=== PATIENT | female | born 1990 | race Caucasian/White ===

== ENCOUNTER 2023-03-05 09:13 | Outpatient (CLI) | payer BC, SELFPAY ==
[2023-03-05] VITALS (16 sets, daily range): BP systolic 116; BP diastolic 73; PULSE 82–102; RESP 16; TEMP 36.8; O2SAT 92–100
--- NOTE | 2023-03-05 10:41 | CRLHL7_ITS ---
For Patients: As a result of the Century Cures Act, medical imaging exams and procedure reports are released immediately into your electronic medical record. You may view this report before your referring provider. If you have questions, please contact your health care provider. INDICATION: Decreased movement. TECHNIQUE: Ultrasound OB pelvis transabdominal. Real-time landaverde-scale imaging of the fetus was performed without stress testing. COMPARISON: None. FINDINGS: Intrauterine gestation: Present. heart rate: 161 BPM. Presentation: Vertex. Placenta: Anterior. Amniotic fluid volume single deepest pocket 7.2 cm 2/2. motion 2/2. tone 2/2. breathing movements 2/2. IMPRESSION: Single viable intrauterine with a normal biophysical profile score of 8 out of 8. Dictated by Angie Raygoza MD @ 03/05/2023 11:53:33 AM (Electronically Signed)
--- NOTE | 2023-03-05 11:55 | PC.OBNST ---
NST Note NST Note Start: 03/05/23 09:14 Freq: ONCE Status: Active Protocol: Document 03/05/23 11:50 [place] (Rec: 03/05/23 11:54 [place] [id number]) NST Note 2 Para (# of births) 1 EDC 04/14/23 Gestational Age In Weeks & Days 34 Weeks & 2 Days Patient Presented with Complaint(s) of Decreased movement Reactive Yes Appropriate for Gestational Age Yes JANIE Louise RNC Date 03/05/23 Reactive Yes Appropriate for Gestational Age Yes JANIE Wei RN Date 03/05/23 OB NST charge Yes Complete NST Note via Write Note Yes The provider's electronic signature indicates the NST is reactive/appropriate for gestational age. *Note to provider: If an addendum is required, open the patient's chart and click on the note under the Nurse/Allied Health tab.
[2023-04-21 17:48] VITALS: BMI 34.3
== END 2023-03-05 11:35 | disposition home or self-care (01) ==
LOC: OB OUT 09:14 → OB 09:14
PROVIDERS: Visit Provider Family Medicine
DX: O36.8190 Decreased fetal movements, unspecified trimester, not applicable or unspecified (principal)
CPT/HCPCS: 59025; 76819; G0463

== ENCOUNTER 2023-04-21 17:10 | Inpatient (IN) | payer BC, SELFPAY ==
[2023-04-21] VITALS (9 sets, daily range): BP systolic 119–126; BP diastolic 78; PULSE 75–78; RESP 16; TEMP 37.1–37.4; O2SAT 98; BMI 34.3
--- NOTE | 2023-04-21 19:42 | PM.OBHPLI ---
OB - H&P: HPI Labor/Induction History of Present Illness Time Seen by Provider: 19:42 Date Seen: 04/21/23 Chief Complaint: The patient is a 32 year old 2 para 1 at 41+0 weeks gestation by LMP c/w 7 wk US, who presents for IOL for post-dates. Chief complaint: Maternity : 2 Para: 1 Indications for induction: prolonged Narrative: Shayy Sweet is a 32 year old female 2 para 1 at 41+0 weeks gestation by LMP c/w 7 wk US, who presents for IOL for post-dates. complicated by subclinical hypothyroidism on levothyroxine. GBS positive. Today, endorses intermittent mild cramping, she says present since due date. No regular contractions. No LOF. Normal movement. Cervical exam on admission was 2/50/-2. Not pablo. Cook catheter was placed. Shortly thereafter, patient reported a gush of fluid, and found to be grossly ruptured. Light meconium fluid. Cook catheter was removed. When the patient was placed back on the monitor, deceleration to the 70s was captured on external monitoring. Rapidly resolved back to baseline of ~165. Cervical exam was repeated, no cord present. History of Present Dating criteria: based on LMP care: good care Ultrasounds: normal 1st trimester US, normal mid trimester US and other (33 week growth US with EFW 68th percentile, AC 92nd percentile) Labs Blood type: B (+) positive Rubella: immune RPR/VDLR: nonreactive GBS status: positive HBsAG: negative Review of Systems Status of ROS: Reports: 10 or more systems reviewed and unremarkable except as noted in History and below Meds Home Medications and Allergies Home Medications Medication Instructions Recorded Confirmed Type levothyroxine 100 mcg tablet 100 mcg PO DAILY 03/05/23 04/21/23 History ondansetron HCl 4 mg tablet 4 mg PO Q8H PRN 03/05/23 04/21/23 History vit no.95-ferrous 1 tab PO DAILY 03/05/23 04/21/23 History fumarate 28 mg-folic acid 800 mcg tablet () Allergies Allergy/AdvReac Type Severity Reaction Status Date / Time No Known Drug Allergies Allergy Verified 03/05/23 09:48 OB - H&P: Exam Physical Exam: Vital signs: Temp Pulse BP Pulse Ox 99.1 F 75 119/78 98 04/21/23 18:53 04/21/23 18:57 04/21/23 18:57 04/21/23 18:56 Narrative: General appearance: Well-appearing adult female. Alert, oriented and appropriate. Sitting up in hospital bed. HEENT: EOMI, no conjunctival injection or discharge. MMM. Neck: Supple. CV: RRR, no rubs, murmurs or extra heart sounds. Pulm: CTAB, no wheezes, rales or rhonchi. Abdomen: Gravid. Soft. MSK: Moving all extremities. Ext: Warm and well-perfused. No LE edema. Skin: No rashes appreciated over exposed skin. Neuro: Grossly normal strength and sensation. No focal deficits. Psych: Normal affect. Detailed Labor and Delivery Exam: Dilation (cm): 2 Effacement (%): 50 Cervix position: mid Consistency: soft Cervical ripeness score: 6 Contraction frequency (min): 0 Fetus (Single): Station: -2 Amniotic Membrane Status: SROM Amniotic Membrane Fluid Description: Meconium Stained (light) Heart Rate Baseline: 165 Monitor Accelerations: Present Monitor Decelerations: Variable (Single associated with ROM) Intermediate Variability: Moderate (6-25) OB - Problem Based A/P Additional Plan (1) Post-dates : Status: Acute Plan: - Monitor following ROM. Consider oral cytotec unless spontaneous labor - Epidural upon request - GBS positive. Abx in active labor - Light meconium stained fluid - Anticipate vaginal delivery (2) Subclinical hypothyroidism: Status: Acute Plan: - Continue levothyroxine 100 mcg daily
[2023-04-21 20:32] LABS: Basophils Absolute Auto 0.03 K/uL (0.00-0.30); Basophils Percent Auto 0.3 % (0.0-3.0); Eosinophils Absolute Auto 0.06 K/uL (0.00-0.50); Eosinophils Percent Auto 0.7 % (0.0-7.0); Hematocrit 35.1 % (33.0-51.0); Hemoglobin* 11.4 gm/dL (12.0-16.0); Immature Granulocytes Abs Auto 0.05 K/uL (0.00-0.30); Immature Granulocytes Pct Auto 0.6 %; Lymphocytes Percent Auto 18.8 % (20-44); Mean Corpuscular HGB Conc 33 gm/dL (32-36); Mean Corpuscular Hemoglobin 27 pg (26-34); Mean Corpuscular Volume 83 fL (80-100); Monocytes Percent Auto 7.5 % (0.0-11.0); Neutrophils Percent Auto 72.1 % (42.0-72.0); Platelet Count* 281 K/uL (140-440); RDW Coefficient of Variation % 14.6 % (11.5-15.5); Red Blood Count 4.25 m/uL (4.00-5.20); White Blood Count* 9.05 K/uL (4.50-11.00)
[2023-04-21 20:35] LABS: Slide Review Reflex No
[2023-04-21] MEDS: LACTATED RINGERS 1000 ML 1,000 ML 125 ML IV (20:53)
[2023-04-21] MEDS: AMPICILLIN 2 GM in 0.9 % SODIUM CHLORIDE Mini-bag 100 ML IVPB (20:55)
[2023-04-22] VITALS (47 sets, daily range): BP systolic 83–146; BP diastolic 41–88; PULSE 71–129; RESP 12–20; TEMP 36.4–37.6; O2SAT 96–100
[2023-04-22] MEDS: AMPICILLIN 1 GM in 0.9 % SODIUM CHLORIDE Mini-bag 100 ML IVPB ×2 (02:29→06:30)
[2023-04-22] MEDS: LIDOCAINE 2% (PF) 5 ML VIAL EPIDURAL (02:37)
[2023-04-22] MEDS: ROPIVACAINE 0.2% 100 ml 100 ML 12 MG EPIDURAL (02:37)
[2023-04-22] MEDS: ROPIVACAINE 0.2 % PF 10 ML INJ 20 MG EPIDURAL (02:38)
--- NOTE | 2023-04-22 02:46 | P.ANBPRC_ITS ---
PFSH PFSH Social History What is your current living situation?: I presently have a place to live Problems where you live: no known problems In the past 12 months, utilities in danger of being shut off: no In past 12 months, lack of transportation kept you from medical appts, meetings, work, or getting things needed for daily living: no In the past 12 mos, have been you worried that your food would run out before you had money to buy more?: never true In the past 12 mos, the food you bought just didn't last and you didn't have money to buy more?: never true Smoking Status: Never smoker How often does anyone, including family, friends and others, physically hurt you : never How often does anyone, including family, friends and others, insult or talk down to you: never How often does anyone, including family, friends and others, threaten you with harm: never How often does anyone, including family, friends and others, scream or curse at you: never Meds Home Medications and Allergies Home Medications Medication Instructions Recorded Confirmed Type levothyroxine 100 mcg tablet 100 mcg PO DAILY 03/05/23 04/21/23 History ondansetron HCl 4 mg tablet 4 mg PO Q8H PRN 03/05/23 04/21/23 History vit no.95-ferrous 1 tab PO DAILY 03/05/23 04/21/23 History fumarate 28 mg-folic acid 800 mcg tablet () Allergies Allergy/AdvReac Type Severity Reaction Status Date / Time No Known Drug Allergies Allergy Verified 03/05/23 09:48 Results Labs Labs: Laboratory Results - last 24 hr 04/21/23 20:17 WBC 9.05 RBC 4.25 Hgb 11.4 L Hct 35.1 MCV 83 MCH 27 MCHC 33 RDW Coeff of Laura 14.6 Plt Count 281 Neut % (Auto) 72.1 H Lymph % (Auto) 18.8 L [place] % (Auto) 7.5 Eos % (Auto) 0.7 Baso % (Auto) 0.3 Neut # (Auto) 6.50 Lymph # (Auto) 1.70 [place] # (Auto) 0.70 Eos # (Auto) 0.06 Baso # (Auto) 0.03 Abs Immat Gran (auto) 0.05 Imm/Tot Granulo (auto) 0.6 Blood Type B Positive Antibody Screen NEGATIVE Vital Signs Vital Signs: Last Vital Signs Temp 99.0 F 04/21/23 23:25 Pulse 101 H 04/22/23 02:43 Resp 16 04/21/23 23:25 BP 132/77 04/22/23 02:45 Pulse Ox 100 04/22/23 02:43 Weight: 96.615 kg Height: 167.64 cm Anesthesia Procedures Epidural Insertion Patient Location: OB Start Time: 02:14 Stop Time: 02:47 Start Date: 04/22/23 Stop Date: 04/22/23 Reason for Block: procedure for pain Patient Position: sitting Performed By: Moe Cobos Preanesthetic Checklist: IV checked, risks and benefits discussed, surgical consent, monitors and equipment checked, pre-op evaluation, timeout performed and anesthesia consent Prep: chlorhexidine gluconate Monitoring: blood pressure monitoring, continuous pulse oximetry and heart rate Approach: midline Vertebral Space: lumbar (1-5) Epidural Technique: CHERIE air Needle Type: Tuohy needle Injection Technique: continuous catheter Needle gauge: 17 Needle Length (cm): 10 cm Needle Insertion Depth (cm): 7 Catheter Gauge: 19 Catheter Type: multi-orifice Catheter at skin depth (cm): 13 Test Dose Result: negative and lidocaine 1.5% with epinephrine 1 to 200,000
[2023-04-22] MEDS: ONDANSETRON 2 MG/ML inj 4 MG IV (02:58)
[2023-04-22] MEDS: PHENYLEPHRINE 100 MCG/ML SYRINGE IVP ×4 (03:06→04:38)
[2023-04-22] MEDS: LACTATED RINGERS 1000 ML 1,000 ML 125 ML IV (04:14)
--- NOTE | 2023-04-22 04:36 | PM.OBPNL ---
Subjective Date Seen: 04/22/23 Narrative: Shayy is a at 41+1 weeks here for IOL for post dates. She had a cook catheter placed last evening, but then had SROM with meconium stained fluid. Since her cervix was not favorable, was planning on cytotec, however due to category 2 tracing, this was held and fortunately, she had onset of labor. She now is comfortable with an epidural, but feeling rectal pressure with contractions. 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 Continue Abx for +GBS, will have peds provider attend delivery Anticipate .
--- NOTE | 2023-04-22 07:18 | W.PM.VAGDEL1 ---
Procedure Procedure Done: Global Delivery monitor: external FHT and external uterine Route of delivery: Laceration description: None Estimated blood loss (mL): 50 Anesthesia type: Epidural Disposition: floor Narrative: The patient is a 32 year-old admitted on 04/21/2023 at 41 Weeks, 0 Days gestation for induction for post dates.? Cervical exam on admission was 2 cm/50 % effaced/-2 station with membranes intact in vertex presentation.? Contractions were absent.? heart rate demonstrated a category 1 tracing.? SROM occurred at 1936 with meconium stained fluid. ? Labor Analgesia:? epidural ? Pitocin:? post ? Labor onset:? 0030 ? Complete:? 33 ? Pushing:? 33 ? heart tones during second stage were category 2. ? At 0652 a viable male infant delivered in vertex OA presentation over intact perineum via spontaneous vaginal delivery.? Infant was placed on maternal abdomen.? Cord was clamped and cut after a 30-60 second delay.? Nose and mouth were bulb suctioned.?Infant then brought to warmer for delee suctioning of the mouth due to thick mecomium. Infant weight pending.? 9 at 1 minute and 9 at 5 minutes.? Shoulder dystocia: no.? Nuchal cord: yes x1 reduced at perineum. There was also a true knot x1. ? Placenta delivered spontaneously and complete at 0654 with a 3 vessel cord. ? Mother and infant were stable after delivery. ? Lacerations:? none. ? Blood loss: 50 mL. Blood loss measurement type: QBL ? Sponge and needles counts are correct.
[2023-04-22] MEDS: ACETAMINOPHEN 500 MG TABLET 1000 MG PO ×2 (08:56→22:42)
--- NOTE | 2023-04-22 13:41 | PM.ANPOST ---
Post Anesthesia Note Post Anesthesia Note Patient seen: Inpatient Respiratory Status: adequate Cardiovascular Status: adequate Mental Status: baseline Pain: adequate Temp: baseline Anesthetic awareness: N/A Complications: none Follow care: none
[2023-04-23 04:57] VITALS: BP 126/76; PULSE 71; RESP 18; TEMP 36.8; O2SAT 96
[2023-04-23 07:05] LABS: Hemoglobin* 11.2 gm/dL (12.0-16.0)
--- NOTE | 2023-04-23 08:07 | P.DS_ITS ---
DS: Providers Provider Date Seen: 04/23/23 Date of admission: 04/21/23 17:10 Primary care physician: Apple Mohr MD Admitting Clinician: Apple Mohr MD Attending Physician on discharge: Stanton Jasmine MD Date of Discharge: 04/23/23 DS: Diagnosis Discharge Diagnosis (1) Vaginal delivery: Status: Acute (2) Subclinical hypothyroidism: Status: Acute Exam Const: Vital Signs, click to edit/add: Vital Signs - 24 hr 04/22/23 08:15 04/22/23 08:16 04/22/23 08:30 Temperature Pulse Rate 81 91 Pulse Rate [Pulse Oximeter] Respiratory Rate 16 Blood Pressure 132/69 134/74 Blood Pressure [Le ft Arm] Pulse Oximetry Oxygen Delivery Me thod 04/22/23 08:30 04/22/23 08:45 04/22/23 08:45 Temperature Pulse Rate 81 Pulse Rate [Pulse Oximeter] Respiratory Rate 16 16 Blood Pressure 126/67 Blood Pressure [Le ft Arm] Pulse Oximetry Oxygen Delivery Or thod 04/22/23 09:00 04/22/23 09:00 04/22/23 11:40 Temperature 98.7 F 98.5 F Pulse Rate 90 Pulse Rate [Pulse Oximeter] 71 Respiratory Rate 16 18 Blood Pressure 132/66 Blood Pressure [Le ft Arm] 121/77 Pulse Oximetry 96 Oxygen Delivery Me od Room Air 04/22/23 16:07 04/22/23 19:46 04/22/23 23:35 Temperature 97.5 F L 98.0 F 98.7 F Pulse Rate Pulse Rate [Pulse Oximeter] 71 71 71 Respiratory Rate 12 18 14 Blood Pressure Blood Pressure [Le ft Arm] 123/72 122/71 127/78 Pulse Oximetry 98 96 Oxygen Delivery Me od Room Air Room Air 04/23/23 04:57 Temperature 98.3 F Pulse Rate Pulse Rate [Pulse Oximeter] 71 Respiratory Rate 18 Blood Pressure Blood Pressure [Le ft Arm] 126/76 [facility]ulse [facility]ximetry [facility] Documenting provider has reviewed patient's vital signs: yes Common normals: no apparent distress Resp: Common normals: normal respiratory effort GI: Common normals: soft to palpation and non-tender Palpation: soft : Uterus: 2/U Lochia: scant OB - DS: Summary Hospital Course Hospital Course: The patient is a 32 year old G 2 P 1 at 41 weeks gestation that was admitted to the Center on 04/21/23 for IOL. She had an uncomplicated vaginal delivery. She delivered a viable male infant. She is . the patient has done well. Peripartum Data Infant delivery method: Vaginal Laceration description: None [place] Gender: Male Time Spent with Patient Time attestation: Total time spent providing and/or coordinating discharge services: Discharge Plan Discharge Disposition: Home w/ Parent or Adult Date of Admission: 04/21/23 17:10 Attending Provider on Discharge: Stanton Jasmine Primary Care Provider: Apple Mohr Anticipated Discharge Date/Time: 04/23/23 08:06 Discharge Medications: Continued levothyroxine 100 mcg tablet 100 mcg PO DAILY PNV cmb#95-ferrous fumarate-FA [] 28 mg iron- 800 mcg tablet 1 tab PO DAILY ondansetron HCl 4 mg tablet 4 mg PO Q8H PRN Discharge Orders: Discharge Order (Routine); Ordered 04/23/23 Ordered By: Stanton Jasmine Patient Education: Vaginal Delivery (DC) Activity Level: Activity as Tolerated Discharge Diet: Regular Follow Up Appointments: Apple Mohr MD [Primary Care Provider] - Forms: [employer] Info Instructions
[2023-04-23 09:02] VITALS: BP 132/81; PULSE 64; RESP 16; TEMP 36.9; O2SAT 99
[2023-04-23] MEDS: ACETAMINOPHEN 500 MG TABLET 1000 MG PO (09:36)
[2023-04-23] MEDS: DOCUSATE SODIUM 100 MG CAPSULE PO (09:37)
[2023-04-23 11:49] VITALS: BP 108/72
--- NOTE | 2023-04-23 12:30 | PC.NURSE ---
Patient discharged home with her sister and her baby. Vital signs within normal limits. Pain controlled with PO meds. Tolerating a regular diet. Complaining of tender nipples and wanted to take a break from breast feeding. Encouraged use of lanolin/soothies and to use a nipple shield if needed. This was provided to patient. Number for consulted provided to patient as well. Stated she has ran out of her levothyroxine but plans to call for a refill today. She plans to make a 2 week and [address] up [address] Mohr. All questions answered and left via ambulatory.
[2023-04-23 23:54] LABS: Rapid Plasma Reagin (RPR) Non Reactive (Non Reactive)
== END 2023-04-23 12:40 | disposition home or self-care (01) | DRG 560 ==
LOC: OB 19:53 → OB CLI 21:09 → OB 21:09
PROVIDERS: Family Medicine; Admitting Provider Family Medicine; PCP Family Medicine; Visit Provider Family Medicine
DX: O48.0 Post-term pregnancy (principal); O99.824 Streptococcus B carrier state complicating childbirth; O77.0 Labor and delivery complicated by meconium in amniotic fluid; O99.284 Endocrine, nutritional and metabolic diseases complicating childbirth; E03.8 Other specified hypothyroidism; Z3A.41 41 weeks gestation of pregnancy; Z37.0 Single live birth
CPT/HCPCS: 01967; 36415; 59200; 85018; 85025; 86592; 86850; 86900; 86901; A9270; C1726; J0290; J2371; J2405; J2795; J7120

== ENCOUNTER 2024-12-02 16:28 | Emergency (ER) | payer BC, SELFPAY ==
--- OUTSIDE RECORDS SUMMARY | 2024-12-02 16:31 | XMS_ITS | Clinical Summary ---
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 Pulse 66 11/26/2024 8:01 AM CDT Temperature 36.8 C (98.2 F) 06/03/2024 9:37 AM CDT Respiratory Rate 16 03/08/2022 8:32 AM HATCHERY HELPER Oxygen Saturation 98% 11/26/2024 8:01 AM CDT Inhaled Oxygen Concentration - - Weight 105.9 kg (233 lb 6.4 oz) 11/26/2024 8:01 AM CDT Height 172.7 cm (5' 8) 11/04/2024 12:5 9 PM CDT Body Mass Index 35.49 11/04/2024 12:59 PM CDT Plan of Treatment Upcoming Encounters Date Type Department Care Team (Late st Contact Info) Description 12/24/2024 10:55 AM HATCHERY HELPER OB Encounter [facility] [[email or web address] [address] [place] [address] Apple Mohr MD [address] [place] [address] Health Maintenance Due Date Last Done Comments Hepatitis B series for 19+ (1 of 3 - 19+ 3-dose series) 07/11/2011 HPV series for age 9-45 (1 - 3-dose SCDM series) 07/11/2019 COVID-19 vaccine series ( - 2024- season) 2024 02/20/2021, 01/09/2021 Influenza Vaccine (#1) 2024 01/09/2021 BMI (ht and wt on same day) for age 18+ 11/04/2025 11/04/2024, 01/01/2024, 06/05/2023, Additional history exists Depression screening for age 12+ 11/05/2025 11/05/2024, 03/01/2021, 02/28/2021, Additional history exists Pap test for age 21-65 09/29/2027 , 09/28/2022, 02/04/2018 Tetanus booster 01/21/2033 01/21/2023, 09/28/2013 HIV for age 15-65 Completed 09/05/2022, 03/26/2011 Hepatitis C screening for age 18-79 Completed 09/05/2022, 03/26/2011 Pneumococcal series for age 6-49 Aged Out No longer eligible based on patient's age to complete this topic RSV vaccine for adults or (No Doses Required) Completed Procedures Procedure Name Priority Date/Time Associated Diagnosis Comments US OB ANY TRI TV Routine 11/12/2024 10:0 3 AM CDT Encounter for supervision of other normal , first trimester (HC) ANTIBODY SCREEN Routine 10/29/2024 3:54 PM CDT Encounter for supervision of other normal , first trimester (HC) ABORH TYPE Routine 10/29/2024 3:54 PM CDT Encounter for supervision of other normal , first trimester (HC) CBC WITH AUTO DIFFERENTIAL Routine 10/29/2024 3:54 PM CDT Encounter for supervision of other normal , first trimester (HC) T4,FREE Routine 10/29/2024 3:54 PM CDT Encounter for supervision of other normal , first trimester (HC) TSH Routine 10/29/2024 3:54 PM CDT Encounter for supervision of other normal , first trimester (HC) CBC WITH AUTO DIFFERENTIAL Routine 10/29/2024 3:54 PM CDT Encounter for supervision of other normal , first trimester (HC) GC CHLAMYDIA TRACH PROBE Routine 10/29/2024 3:54 PM CDT Encounter for supervision of other normal , first trimester (HC) URINE CULTURE Routine 10/29/2024 3:54 PM CDT Encounter for supervision of other normal , first trimester (HC) UA W/ SEDIMENT EXAM REFLEXED PER CRITERIA Routine 10/29/2024 3:54 PM CDT Encounter for supervision of other normal , first trimester (HC) RUBELLA IMMUNE STATUS Routine 10/29/2024 3:54 PM CDT Encounter for supervision of other normal , first trimester (HC) TREPONEMA PALLIDUM Routine 10/29/2024 3: 54 PM CDT Encounter for supervision of other normal , first trimester (HC) HBSAG (HBS) Routine 10/29/2024 3:54 PM CDT Encounter for supervision of other normal , first trimester (HC) CONVERTER SKIMMER THIN PREP PAP SCREEN IMAGED Routine 09/28/2022 8:30 AM CDT Screening for cervical cancer LC HIV-1/O/2, 4TH GENERATION Routine 09/05/2022 10:59 AM CDT Less than 8 weeks gestation of (HC) LC HCV ANTIBODY RFX TO QUANT PCR Routine 09/05/2022 10:59 AM CDT Less than 8 weeks gestation of (HC) from Last 3 Months or Most Recently Relevant to Health Maintenance Results * US OB ANY TRI TV (11/12/2024 10:03 AM CDT) Anatomical Region Laterality Modality , 2or 3 TRIMESTER, 1ST TRIMESTER Ultrasound 11/13/2024 4:11 PM CDT Impressions 11/13/2024 4:11 PM CDT Normal first trimester OB ultrasound exam. Gestational age calculated at 6 weeks 5 days with a sonographic due date of 07/03/2025. Dictated by Donato Evans MD @ 11/13/2024 4:11:32 PM (Electronically Signed) Narrative 11/13/2024 4:11 PM CDT For Patients: As a result of the Cures Act, medical imaging exams and procedure reports are released immediately into your electronic medical record. You may view this report before your referring provider. If you have questions, please contact your health care provider. INDICATION: First trimester scan, establish dates. COMPARISON: None. TECHNIQUE: Real-time landaverde-scale imaging of the pelvis was performed transvaginal. FINDINGS: Sonographic imaging demonstrates a single living intrauterine gestation. The embryo demonstrates a regular cardiac rate measuring 127 beats per minute. The embryo`s crown-rump length measurement of 0.8 cm corresponds to a gestational age of 6 weeks 5 days with a sonographic due date of 07/03/2025. There is a normal-appearing yolk sac. There are no gross abnormalities noted within the embryo at this early state of development. The gestational sac has a normal appearance. There is no evidence of a perigestational hemorrhage. The amount of fluid within the sac appears appropriate for gestational age. The cervix is closed. The myometrium appears normal. Normal right ovary. Left ovary not visualized. There are no suspicious fluid collections noted in the cul-de-sac. Procedure Note Donato Evans MD - 11/13/2024 For Patients: As a result of the Cures Act, medical imagingexams and procedure reports are released immediately into your electronicmedical record. You may view this report before your referring provider.If you have questions, please contact your health care provider. INDICATION: First trimester scan, establish dates. COMPARISON: None. TECHNIQUE: Real-time landaverde-scale imaging of the pelvis was performed transvaginal. FINDINGS: Sonographic imaging demonstrates a single living intrauterine gestation.The embryo demonstrates a regular cardiac rate measuring 127 beats perminute. The embryo`s crown-rump length measurement of 0.8 cm correspondsto a gestational age of 6 weeks 5 days with a sonographic due date of07/03/2025. There is a normal-appearing yolk sac. There are no grossabnormalities noted within the embryo at this early state of development.The gestational sac has a normal appearance. There is no evidence of aperigestational hemorrhage. The amount of fluid within the sac appearsappropriate for gestational age. The cervix is closed. The myometrium appears normal. Normal right ovary.Left ovary not visualized. There are no suspicious fluid collections notedin the cul-de-sac. IMPRESSION: Normal first trimester OB ultrasound exam. Gestational age calculated at6 weeks 5 days with a sonographic due date of 07/03/2025. Dictated by Donato Evans MD @ 11/13/2024 4:11:32 PM (Electronically Signed) us Apple Mohr MD US Final R esult * (ABNORMAL) CBC WITH AUTO DIFFERENTIAL (10/29/2024 3:54 PM CDT) WHITE BLOOD CELL COUNT 5.5 3.8 - 10.8 Thousand/ uL 10/30/2024 3:37 AM CDT [facility] RED BLOOD CELL COUNT 5.22(H) 3.80 - 5.10 Million/u L 10/30/2024 3:37 AM CDT [facility] HEMOGLOBIN 15.1 11.7 - 15.5 g/dL 10/30/2024 3:37 AM CDT [facility] HEMATOCRIT 44.9 35.0 - 45.0 % 10/30/2024 3:37 AM CDT [facility] MCV 86.0 80.0 - 100.0 fL 10/30/2024 3:37 AM CDT [facility] MCH 28.9 27.0 - 33.0 pg 10/30/2024 3:37 AM CDT [facility] MCHC 33.6 32.0 - 36.0 g/dL 10/30/2024 3:37 AM CDT [facility] Comment: For adults, a slight decrease in the calculated MCHC value (in the range of 30 to 32 g/dL) is most likely not clinically significant; however, it should be interpreted with caution in correlation with other red cell parameters and the patient's clinical condition. RDW 13.2 11.0 - 15.0 % 10/30/2024 3:37 AM CDT [facility] PLATELET COUNT 328 140 - 400 Thousand/ uL 10/30/2024 3:37 AM CDT [facility] MPV 10.1 7.5 - 12.5 fL 10/30/2024 3:37 AM CDT [facility] NEUTROPHILS 55.7 % 10/30/2024 3:37 AM CDT [facility] LYMPHOCYTES 32.4 % 10/30/2024 3:37 AM CDT [facility] MONOCYTES 8.1 % 10/30/2024 3:37 AM CDT [facility] EOSINOPHILS 3.1 % 10/30/2024 3:37 AM CDT [facility] BASOPHILS 0.7 % 10/30/2024 3:37 AM CDT [facility] ABSOLUTE NEUTROPHILS 3064 1500 - 7800 cells/uL 10/30/2024 3:37 AM CDT [facility] ABSOLUTE LYMPHOCYTES 1782 850 - 3900 cells/uL 10/30/2024 3:37 AM CDT [facility] ABSOLUTE MONOCYTES 446 200 - 950 cells/uL 10/30/2024 3:37 AM CDT [facility] ABSOLUTE EOSINOPHILS 171 15 - 500 cells/uL 10/30/2024 3:37 AM CDT [facility] ABSOLUTE BASOPHILS 39 0 - 200 cells/uL 10/30/2024 3:37 AM CDT [facility] Blood BLOOD SPECIMEN / Unknown [facility] / Unknown 10/29/2024 3:54 PM CDT 10/29/2024 3:54 PM CDT Apple Mohr MD HEMATOLOGY Final R esult [facility] [address] [address], * TREPONEMA PALLIDUM (10/29/2024 3:54 PM CDT) TREPONEMA PALLIDUM Non-Reacti ve Non-Reacti ve 10/29/2024 10:52 PM CDT [facility] Blood BLOOD SPECIMEN / Unknown [facility] / Unknown 10/29/2024 3:54 PM CDT 10/29/2024 3:54 PM CDT Apple Mohr MD SEND OUTS Final R esult [facility] [address] [place] [address], * (ABNORMAL) TSH (10/29/2024 3:54 PM CDT) Pathologist [facility] TSH 4.86(H) mIU/L 10/30/2024 4:14 AM CDT [facility] Comment: Reference Range > or = 20 Years 0.40-4.50 Ranges First trimester 0.26-2.66 Second trimester 0.55-2.73 Third trimester 0.43-2.91 Blood BLOOD SPECIMEN / Unknown [facility] / Unknown 10/29/2024 3:54 PM CDT 10/29/2024 3:54 PM CDT us Apple Mohr MD CHEMISTRY Final R esult Performing Organization Address [facility] de Phone Number ice [address] [address], * RUBELLA IMMUNE STATUS (10/29/2024 3:54 PM CDT) Pathologist [facility] RUBELLA AB (IGG), IMMUNE STATUS 3.68 Index 10/30/2024 10:11 AM CDT [facility] Comment: Index Interpretation ----- <0.90 Not consistent with immunity 0.90-0.99 Equivocal > or = 1.00 Consistent with immunity The presence of rubella IgG antibody suggests immunization or past or current infection with rubella virus. Blood BLOOD SPECIMEN / Unknown [facility] / Unknown 10/29/2024 3:54 PM CDT 10/29/2024 3:54 PM CDT us Apple Mohr MD SEND OUTS Final R esult Performing Organization Address [facility]/ZIP Co de Phone Number ice [address] [address], * GC CHLAMYDIA TRACH PROBE (10/29/2024 3:54 PM CDT) Pathologist [facility] CHLAMYDIA PROBE Negative 6:20 AM CDT [facility] N GONORRHOEAE PROBE Negative 10/30/2024 6:20 AM CDT [facility] Other URINE SPECIMEN / Unknown Non-Blood / Unknown 10/29/2024 3:54 PM CDT 10/29/2024 3:54 PM CDT us Apple Mohr MD MICROBIOLOGY Final R esult [facility] [address] [place] [address], [place] * ABORH TYPE (10/29/2024 3:54 PM CDT) Pathologist [facility] ABORH B Rh Positive 10/29/2024 10:57 PM CDT [facility]OD [facility] Blood BLOOD SPECIMEN / Unknown [facility] / Unknown 10/29/2024 3:54 PM CDT 10/29/2024 3:54 PM CDT us Apple Mohr MD BLOOD BANK Final R esult [facility] [address] [place] [address], [place] [phone] * HBSAG (HBS) (10/29/2024 3:54 PM CDT) Pathologist [facility] HEPATITIS B SURFACE ANTIGEN NON-REACT JULY NON-REACT JULY 10/30/2024 10:58 AM CDT [facility] Comment: For additional information, please refer to http://education.[employer].Sportody/faq/QHW281 (This link is being provided for informational/ educational purposes only.) Blood BLOOD SPECIMEN / Unknown [facility] / Unknown 10/29/2024 3:54 PM CDT 10/29/2024 3:54 PM CDT us Apple Mohr MD SEND OUTS Final R esult [facility] [id number] [place] [address], [place] [phone] * URINE CULTURE (10/29/2024 3:54 PM CDT) CULTURE <10,000 CFU/mL multiple organisms 10/31/2024 2:56 PM CDT [facility] Urine URINE SPECIMEN / Unknown Non-Blood / Unknown 10/29/2024 3:54 PM CDT 10/29/2024 3:54 PM CDT Apple Mohr MD MICROBIOLOGY Final R esult [facility] [address] [place] [address], [place] * ANTIBODY SCREEN (10/29/2024 3:54 PM CDT) ANTIBODY SCREEN Negative Negative 10/29/2024 11:08 PM CDT [facility] BLOOD BANK SPECIMEN EXPIRATION DATE/TIME 11/01/24 23:59 10/29/2024 11:08 PM CDT [facility] BLOOD B[facility] Blood BLOOD SPECIMEN / Unknown [facility] / Unknown 10/29/2024 3:54 PM CDT 10/29/2024 3:54 PM CDT Apple Mohr MD BLOOD BANK Final R esult [facility] [address] [place] [address], [place] [phone] * UA W/ SEDIMENT EXAM REFLEXED PER CRITERIA (10/29/2024 3:54 PM CDT) COLOR Yellow Yellow Color 10/29/2024 10:36 PM CDT [facility] CLARITY Clear Clear Clarity 10/29/2024 10:36 PM CDT [facility] SPECIFIC GRAVITY,URINE 1.015 1.010, 1.015, 1.020, 1.025 10/29/2024 10:36 PM CDT [facility] PH,URINE 7.5 6.0, 7.0, 8.0, 5.5, 6.5, 7.5, 8.5 10/29/2024 10:36 PM CDT [facility] UROBILINOGEN, QUALITATIVE Normal Normal EU/dl 10/29/2024 10:36 PM CDT [facility] PROTEIN, URINE Negative Negative mg/dL 10/29/2024 10:36 PM CDT [facility] GLUCOSE, URINE Negative Negative mg/dL 10/29/2024 10:36 PM CDT [facility] KETONES,URINE Negative Negative mg/dL 10/29/2024 10:36 PM CDT [facility] BILIRUBIN,URI NE Negative Negative 10/29/2024 10:36 PM CDT [facility] OCCULT BLOOD,URINE Negative Negative 10/29/2024 10:36 PM CDT [facility] NITRITE Negative Negative 10/29/2024 10:36 PM CDT [facility] LEUKOCYTE ESTERASE Negative Negative 10/29/2024 10:36 PM CDT [facility] Urine URINE SPECIMEN / Unknown Non-Blood / Unknown 10/29/2024 3:54 PM CDT 10/29/2024 3:54 PM CDT us Apple Mohr MD URINE Final R esult [facility] [address] [place] [address], * T4,FREE (10/29/2024 3:54 PM CDT) T4, FREE 1.2 0.8 - 1.8 ng/dL 10/30/2024 4:14 AM CDT ice Blood BLOOD SPECIMEN / Unknown [facility] / Unknown 10/29/2024 3:54 PM CDT 10/29/2024 3:54 PM CDT Apple Mohr MD CHEMISTRY Final R esult [facility] [address] [address], * CONVERTER SKIMMER THIN PREP PAP SCREEN IMAGED [[id number]] (09/28/2022 8:30 AM CDT) Case Report Gynecologic Cytology Report Case: [id number] Authorizing Provider: Apple Mohr MD Collected: 09/28/2022 0830 Ordering Location: [facility] Received: 09/28/2022 0850 Clinic First Screen: Darrell Rivas Specimen: CONVERTER SKIMMER ThinPrep Vial Screening, Cervical 10/09/2022 4:53 PM CDT [facility] INTERPRETATION/ RESULT NEGATIVE FOR INTRAEPITHELIAL LESION OR MALIGNANCY (NIL) (none) 10/09/2022 4:53 PM CDT [facility] at 1653 CDT SPECIMEN ADEQUACY Satisfactory for evaluation No endocervical component seen in a patient 10/09/2022 4:53 PM CDT [facility] HPV REQUEST HPV and PAP 10/09/2022 4:53 PM CDT [facility] Date of LMP 07/08/2022 10/09/2022 4:53 PM CDT [facility] Last Pap Date 02/04/18 10/09/2022 4:53 PM CDT [facility]AL [facility] Last Pap Result NIL 4:53 PM CDT [facility] Abnormal Pap or Cowley Bx in last 5 years No 10/09/2022 4:53 PM CDT [facility] Menstrual Status 10/09/2022 4:53 PM CDT [facility] Cowley Bx Done Today No 10/09/2022 4:[address] [facility] Additional Information None given 10/09/2022 4:[address] [facility] Comment: Cytology is screened at [facility] - [address], [place] [address] and [facility] - [address], [place] [address] and [facility] - [address] [place] [address] [facility] - [address], [place] [address] Automated Review Successful 10/09/2022 4:[address] [facility] Comment:Specimen processed s uccessfully by automated him tech device, ThinPrep Imaging System, [email or web address] ANCILLARY TESTING CONVERTER SKIMMER HPV Ordered, Please see separate report 10/09/2022 4:[address] [facility] Note The pap test is a screening technique, not a diagnostic procedure. It is used primarily to screen for squamous cancers and precursor lesions. Published studies have shown that it is subject to both false negative and false positive results. The pap test should not be used as the sole means to diagnose or exclude pre-malignant and malignant lesions. 10/09/2022 4:[address] [facility] Other (Cervical) Non-Blood / Unknown 09/28/2022 8:30 AM CDT 09/28/2022 8:50 AM CDT us Apple Mohr MD PATHOLOGY/CYTOLOGY Rin minor Result [facility] [address] [place] [address], [place] * LC HCV ANTIBODY RFX TO QUANT PCR (09/05/2022 10:59 AM CDT) HCV Ab Non Reactive Non Reactive 09/07/2022 10:06 PM CDT [facility]IC TESTING (CET) Blood BLOOD SPECIMEN / Unknown [facility] / Unknown 09/05/2022 10:59 AM CDT 09/05/2022 10:[address] [facility] ([facility]) - 09/07/2022 10:06 PM CDT Performed at: [address] [place] [id number] Dump Worker: Roberto Morales MD, Phone: [phone] Mary Mendoza MD LABORATORY Final Resul t Performing Organization Address City/[facility]/ZIP Co de Phone Number [facility]OTERIC TESTING ([facility]) [address] [place] [address] * LC HIV-1/O/2, 4TH GENERATION (09/05/2022 10:59 AM CDT) [facility] HIV Scr 4th Gen Non Reactive Non Reactive 09/07/2022 10:[address] [facility]OTERIC TESTING ([facility]) Comment: HIV Negative HIV-1/HIV-2 antibodies and HIV-1 p24 antigen were NOT detected. There is no laboratory evidence of HIV infection. Blood BLOOD SPECIMEN / Unknown Butterfly / Unknown 09/05/2022 10:59 AM CDT 09/05/2022 10:[address] [facility] ([facility]) - 09/07/2022 10:06 PM CDT Performed at: [address] [place] [id number] Dump Worker: Roberto Morales MD, Phone: [phone] Mary Mendoza MD LABORATORY Final Resul t Performing Organization Address City/[facility]/ZIP Co de Phone Number [facility]IC TESTING ([facility]) [address] [place] [address] from Last 3 Months or Most Recently Relevant to Health Maintenance Insurance [employer] [facility] [place] Care Teams Serology Technician Relationship Specialty Start Date End Date Apple Mohr MD [address] [place] [address] PCP - General Family Practice 10/29/24
[2024-12-02 16:36] VITALS: BP 132/82; PULSE 88; RESP 20; TEMP 36.7; O2SAT 97; BMI 34.6
[2024-12-02] MEDS: METOCLOPRAMIDE 10 MG TABLET PO (17:24)
[2024-12-02 17:59] LABS: PCR FLU A Negative PCR FLU A (Negative); PCR FLU B Negative PCR FLU B (Negative); PCR RSV Negative PCR RSV (Negative); SARS PCR* Negative SARS-CoV-2 (Negative)
--- NOTE | 2024-12-02 18:28 | ED.GENADULT ---
HPI - General Adult General Chief complaint: Fever Stated complaint: 9 weeks , fever Time Seen by Provider: 12/02/24 16:31 History of Present Illness HPI narrative: This 34-year-old female is 9 weeks with her 3rd . She comes in reporting a cough and states that she measured a temperature at 100? F. she arrives here with normal vital signs. She states that she has had nausea and had difficulty taking anything by mouth over the past few days. She has been using Zofran ODT without much relief. Related Data Home Medications ?Medication ?Instructions ?Recorded ?Confirmed vit no.95-ferrous 1 tab PO DAILY 03/05/23 04/21/23 fumarate 28 mg-folic acid 800 mcg tablet () levothyroxine 50 mcg tablet 50 mcg PO DAILY 12/02/24 12/02/24 ondansetron 4 mg disintegrating mg PO 12/02/24 tablet Previous Rx's ?Medication ?Instructions ?Recorded metoclopramide HCl 10 mg tablet 10 mg PO Q6H PRN nausea and 12/02/24 (Reglan) vomiting #30 tabs Allergies Allergy/AdvReac Type Severity Reaction Status Date / Time No Known Drug Allergies Allergy Verified 03/05/23 09:48 Review of Systems Status of ROS: Reports: 10 or more systems reviewed and unremarkable except as noted in History and below Narrative: Constitutional: No fevers, no weight gain or loss. Eyes: No discharge. No vision changes. HENT: No congestion, no sore throat, no ear pain. Cardiovascular: No chest pain, no palpitations. Respiratory: No shortness of breath, no wheezes. She reports a cough. Gastrointestinal: No abdominal pain, no diarrhea. Nausea with vomiting related to . Genitourinary: No dysuria, no hematuria. Musculoskeletal: Normal range of motion. Skin: No rashes, no pruritis. Neurological: No dizziness, weakness, sensory change, speech change. Endo/Heme/Allergies: No bruising or bleeding. No polydipsia. Pysch: no suicidality, no anxiety, no insomnia. All other systems reviewed and are negative. [facility] Medical History (Updated 12/02/24 @ 18:32 by Rudolph Shah MD) Vaginal delivery ?O80 - Encounter for full-term uncomplicated delivery (ICD-10) Social History What is your current living situation?: I presently have a place to live Problems where you live: no known problems In the past 12 months, utilities in danger of being shut off: no In past 12 months, lack of transportation kept you from medical appts, meetings, work, or getting things needed for daily living: no In the past 12 mos, have been you worried that your food would run out before you had money to buy more?: never true In the past 12 mos, the food you bought just didn't last and you didn't have money to buy more?: never true Smoking Status: Never smoker How often does anyone, including family, friends and others, physically hurt you: never How often does anyone, including family, friends and others, insult or talk down to you: never How often does anyone, including family, friends and others, threaten you with harm: never How often does anyone, including family, friends and others, scream or curse at you: never Exam Narrative: Exam Narrative: Constitutional: Well-developed, well-nourished, no acute distress. HEENT: Normocephalic, atraumatic. Neck: Normal range of motion. Nontender. Supple. Heart: Regular. No murmurs. Normal rate. Intact distal pulses. Lungs: Clear to auscultation. No chest discomfort. No wheezes, rhonchi, or rales. Abdomen: Normal bowel sounds. Nontender. No rebound tenderness. Genitalia: Deferred. Back: No midline tenderness. Normal range of motion. Extremities: Normal range of motion. No injury. Skin: Intact. No rash. Warm. No erythema or pallor. Neurologic: No altered sensation. No weakness. Alert and oriented. Psychiatric: No suicidality. No anxiety or depression. No insomnia. Nursing notes and vitals signs are reviewed. Const: Vital Signs, click to edit/add: Vital Signs - 24 hr 12/02/24 16:36 Temperature 98.0 F Pulse Rate [Pulse Oximeter] 88 Respiratory Rate 20 Blood Pressure [Ri ght Upper Arm] 132/82 Pulse Oximetry 97 Oxygen Delivery Me thod Room Air Course Vital Signs Vital signs: Initial Vital Signs Temperature 98.0 F 12/02/24 16:36 Temperature Source Oral 12/02/24 16:36 Pulse Rate 88 12/02/24 16:36 Respiratory Rate 20 12/02/24 16:36 Blood Pressure 132/82 12/02/24 16:36 Blood Pressure Mean 98 12/02/24 16:36 Blood Pressure Position Sitting 12/02/24 16:36 Pulse Oximetry 97 12/02/24 16:36 Oxygen Delivery Method Room Air 12/02/24 16:36 Vital Signs Temperature 98.0 F 12/02/24 16:36 Pulse Rate 88 12/02/24 16:36 Respiratory Rate 20 12/02/24 16:36 Blood Pressure 132/82 12/02/24 16:36 Pulse Oximetry 97 12/02/24 16:36 Oxygen Delivery Method Room Air 12/02/24 16:36 Temperature 98.0 F 12/02/24 16:36 Pulse Rate 88 12/02/24 16:36 Respiratory Rate 20 12/02/24 16:36 Blood Pressure 132/82 12/02/24 16:36 Pulse Oximetry 97 12/02/24 16:36 Oxygen Delivery Method Room Air 12/02/24 16:36 Medications Administered Medications: Discontinued Medications Generic Name Dose Route Start Last Admin Trade Name Cale PRN Reason Stop Dose Admin Metoclopramide HCl 10 mg 12/02/24 17:04 12/02/24 17:24 Metoclopramide 10 Mg Tablet PO 12/02/24 17:05 10 mg ONCE ONE Administration Medical Decision Making MDM Narrative Medical decision making narrative: This patient has nausea in the 1st trimester of her and states that she has not been able to take much by mouth over the past few days despite taking Zofran. She received an oral dose of Reglan 10 mg here and was able to take liquids without any symptoms. A nasal pharyngeal swab returns negative for viruses tested. This patient is okay to be discharged home. I did provide a prescription for tablets of Reglan that can be used as directed and needed for nausea symptoms. Lab Data Labs: Lab Results 12/02/24 Range/Units 17:15 SARS-CoV-2 (PCR) Negative SARS-CoV-2 (Negative) Influenza Type A (PCR) Negative PCR FLU A (Negative) Influenza Type B (PCR) Negative PCR FLU B (Negative) RSV (PCR) Negative PCR RSV (Negative) Discharge Plan Discharge Clinical Impression: Acute upper respiratory infection, Hyperemesis gravidarum Patient Disposition: Home, Self-Care Condition: Improved Additional Instructions: Use Reglan and as needed and directed for symptomatic relief. Follow up with return if symptoms are worsening. Prescriptions: New metoclopramide HCl [Reglan] 10 mg tablet 10 mg PO Q6H PRN (Reason: nausea and vomiting) Qty: 30 0RF No Action PNV no.95-ferrous fumarate-FA [] 28 mg iron- 800 mcg tablet 1 tab PO DAILY levothyroxine 50 mcg tablet 50 mcg PO DAILY ondansetron 4 mg tablet,disintegrating PO Follow Up/Referrals: Apple Mohr MD [Primary Care Provider, Family Practice] Stand Alone Forms: [employer] Info Instructions
== END 2024-12-02 18:45 | disposition home or self-care (01) ==
PROVIDERS: Emergency Provider Emergency Medicine Emergency Medical Services; PCP Family Medicine
DX: J06.9 Acute upper respiratory infection, unspecified (principal); O21.0 Mild hyperemesis gravidarum; Z3A.09 9 weeks gestation of pregnancy
CPT/HCPCS: 87631; 99283; 99284; A9270

== ENCOUNTER 2024-12-10 11:15 | Observation (INO) | payer BC, SELFPAY ==
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
[2024-12-10 11:19] VITALS: BP 131/91; PULSE 95; RESP 18; TEMP 36.4; O2SAT 96; BMI 34.9
[2024-12-10 12:26] VITALS: BP 123/82; PULSE 65; RESP 14; O2SAT 99
--- NOTE | 2024-12-10 13:13 | ED.NAVMDI ---
HPI - Nausea/Vomiting/Diarrhea General Date Seen: 12/10/24 Chief complaint: Nausea/Vomiting Stated complaint: dehydrated, stomach pain, throwing up Time Seen by Provider: 12/10/24 12:30 Source: patient Mode of arrival: ambulatory Limitations: no limitations History of Present Illness HPI Narrative: Patient is a 34-year-old female presenting to emergency department for hyperemesis gravidarum. She is currently 11 weeks presenting to emergency department for nausea vomiting. She states she has not been able to eat or drink anything for the past 3 weeks due to nausea. She states every single time she tries she vomits. Has been using Zofran and Reglan in she continues to vomit despite the medication. Was seen here last week for this and was feeling better at that time at discharge plan symptoms immediately started up again. She has not been seen in the emergency department for hyperemesis gravidarum in her 1st 2 pregnancies. She did have the nausea and vomiting but she states it was not as bad. She denies fevers, chills, chest pain, shortness of breath, dizziness, abdominal pain. She does states she feels slightly lightheaded. Has not noticed any vaginal bleeding or discharge. No other concerns noted at this time. Related Data Home Medications ?Medication ?Instructions ?Recorded ?Confirmed vit no.95-ferrous 1 tab PO DAILY 03/05/23 12/10/24 fumarate 28 mg-folic acid 800 mcg tablet () levothyroxine 50 mcg tablet 50 mcg PO DAILY 12/02/24 12/10/24 ondansetron 4 mg disintegrating mg PO 12/02/24 tablet Previous Rx's ?Medication ?Instructions ?Recorded metoclopramide HCl 10 mg tablet 10 mg PO Q6H PRN nausea and 12/02/24 (Reglan) vomiting #30 tabs Allergies Allergy/AdvReac Type Severity Reaction Status Date / Time No Known Drug Allergies Allergy Verified 12/10/24 11:25 Review of Systems Status of ROS: Reports: 10 or more systems reviewed and unremarkable except as noted in History and below [facility] Medical History Vaginal delivery ?O80 - Encounter for full-term uncomplicated delivery (ICD-10) Social History What is your current living situation?: I presently have a place to live Problems where you live: no known problems In the past 12 months, utilities in danger of being shut off: no In past 12 months, lack of transportation kept you from medical appts, meetings, work, or getting things needed for daily living: no In the past 12 mos, have been you worried that your food would run out before you had money to buy more?: never true In the past 12 mos, the food you bought just didn't last and you didn't have money to buy more?: never true Smoking Status: Never smoker Do you use any of these nicotine containing products: None How often do you have a drink containing alcohol: never AUDIT-C Alcohol total score: 0 Non-prescribed substance use: denies use How often does anyone, including family, friends and others, physically hurt you: never How often does anyone, including family, friends and others, insult or talk down to you: never How often does anyone, including family, friends and others, threaten you with harm: never How often does anyone, including family, friends and others, scream or curse at you: never Exam Narrative: Exam Narrative: Const: Well-nourished, Well-developed, in mild distress Eyes: PERRL, no conjunctival injection, and symmetrical lids HENT: Atraumatic external nose and ears. Moist mucous membranes. Neck: Symmetric, trachea midline, No thyromegaly. CVS: RRR, No murmurs or gallops. Peripheral pulses 2+ and equal in all extremities RESP: Unlabored respiratory effort. Clear to auscultation bilaterally. GI: Nontender/Nondistended, No rebound or guarding. MSK:Extremities w/o deformity, Normal Active ROM Skin: Warm, Dry. No rashes or lesions. Neuro: Normal Muscle tone, No focal neurological deficits. Psych: Awake, Alert, & Oriented x3. Appropriate mood and affect. Const: Vital Signs, click to edit/add: Vital Signs - 24 hr 12/10/24 11:19 12/10/24 12:26 Temperature 97.5 F L Pulse Rate [Right Pulse Oximeter] 95 65 Respiratory Rate 18 14 Blood Pressure [Ri ght Upper Arm] 131/91 H 123/82 Pulse Oximetry 96 99 Oxygen Delivery Me thod Room Air Room Air Course Vital Signs Vital signs: Initial Vital Signs Temperature 97.5 F L 12/10/24 11:19 Temperature Source Temporal Artery Scan 12/10/24 11:19 Pulse Rate 95 12/10/24 11:19 Pulse Rhythm Regular 12/10/24 11:19 Pulse Strength 3+ Normal 12/10/24 11:19 Respiratory Rate 18 12/10/24 11:19 Blood Pressure 131/91 H 12/10/24 11:19 Blood Pressure Mean 104 12/10/24 11:19 Blood Pressure Position Sitting 12/10/24 11:19 Pulse Oximetry 96 12/10/24 11:19 Oxygen Delivery Method Room Air 12/10/24 11:19 Vital Signs Temperature 97.5 F L 12/10/24 11:19 Pulse Rate 95 12/10/24 11:19 Respiratory Rate 18 12/10/24 11:19 Blood Pressure 131/91 H 12/10/24 11:19 Pulse Oximetry 96 12/10/24 11:19 Oxygen Delivery Method Room Air 12/10/24 11:19 Temperature 97.5 F L 12/10/24 11:19 Pulse Rate 65 12/10/24 12:26 Respiratory Rate 14 12/10/24 12:26 Blood Pressure 123/82 12/10/24 12:26 Pulse Oximetry 99 12/10/24 12:26 Oxygen Delivery Method Room Air 12/10/24 12:26 Medications Administered Medications: Discontinued Medications Generic Name Dose Route Start Last Admin Trade Name Freq PRN Reason Stop Dose Admin Lactated Ringer's 1,000 mls @ 1,000 mls/hr 12/10/24 12:42 12/10/24 15:35 Lactated Ringers 1000 Ml IV 12/10/24 13:41 Infused .Q1H ONE Infusion Ondansetron HCl 4 mg 12/10/24 12:42 12/10/24 14:30 Ondansetron 2 Mg/Ml Inj IVP 12/10/24 12:43 4 mg ONCE ONE Administration MDM - Nausea/Vomiting/Diarrhea MDM Narrative Medical decision making narrative: Patient is a 34-year-old female presenting to the emergency department for nausea and vomiting. She likely has hyperemesis gravidarum. Will check CBC, magnesium, urinalysis, CMP. Will give her fluids for her nausea. She was awake checked for viruses couple weeks ago about a week after her symptoms started and I do not believe we need to recheck now. Will give Zofran for her nausea. She still feeling nauseated after the Zofran. Tried to take a couple sips of water without improvement. CBC, magnesium, CMP shows no concerning abnormalities. AST ALT very slightly elevated. Urinalysis shows 4+ ketones. We were able to get an accurate weight and she weighs 98 kg. She has dropped 9.5% of her body weight since her 5 week appointment on 10/29/24. Considering she is unable to eat or drink anything, she has persistent ketonemia has lost nearly 10% of her body weight I do believe she needs to be admitted. I initially spoke to Dr. Krause who recommends admission and to start fluids with sugar tell ketonemia resolves. States since she is in the line outpatient she can consult but will not be the admitting provider. I spoke to Dr. Mendoza is agreeable to admit the patient. Recommends try Compazine. Patient is agreeable to this plan. Of note we tried to get heart tones but were unable to get an adequate tones. I did do an ultrasound myself and I am able to see the fetus moving vigorously and I do see a heartbeat. Lab Data Labs: Lab Results 12/10/24 12/10/24 Range/Units 13:55 14:15 WBC 7.57 (4.50-11.00) K/uL RBC 5.54 H (4.00-5.20) m/uL Hgb 15.8 (12.0-16.0) gm/dL Hct 46.7 (33.0-51.0) % MCV 84 (80-100) fL MCH 29 (26-34) pg MCHC 34 (32-36) gm/dL RDW Coeff of Laura 12.9 (11.5-15.5) % Plt Count 264 (140-440) K/uL Neut % (Auto) 61.3 (42.0-72.0) % Lymph % (Auto) 29.6 (20-44) % [place] % (Auto) 7.0 (0.0-11.0) % Eos % (Auto) 1.3 (0.0-7.0) % Baso % (Auto) 0.5 (0.0-3.0) % Neut # (Auto) 4.64 (1.7-7.0) K/uL Lymph # (Auto) 2.24 (0.90-2.90) K/uL [place] # (Auto) 0.50 (0.00-0.90) K/UL Eos # (Auto) 0.10 (0.00-0.50) K/uL Baso # (Auto) 0.04 (0.00-0.30) K/uL Abs Immat Gran (auto) 0.02 (0.00-0.30) K/uL Imm/Tot Granulo (auto) 0.3 % Sodium 136 (135-149) mmol/L Potassium 3.5 L (3.6-5.1) mmol/L Chloride 98 (96-114) mmol/L Carbon Dioxide 22 (20-32) mmol/L Anion Gap 16 H (7-15) mEq/L BUN 11 (5-24) mg/dL Creatinine 0.7 (0.5-1.5) mg/dL Estimated Creat Clear 108.01 Estimated GFR 118 ml/min Glucose 94 (60-115) mg/dL Calcium 9.1 (8.4-10.6) mg/dL Magnesium 2.1 (1.5-2.6) mg/dL Total Bilirubin 1.2 (0.1-1.5) mg/dL AST 40 H (12-35) U/L ALT 36 H (4-35) U/L Alkaline Phosphatase 97 (40-150) U/L Total Protein 8.5 H (6.0-8.3) g/dL Albumin 4.3 (3.3-5.0) g/dL Urine Color Red A (Yellow) Urine Appearance Turbid A (Clear) Urine pH 6.0 (5.0-8.5) Ur Specific [place] >= 1.030 (1.000-1.030) Urine Protein 3+ A (Negative) Urine Glucose (UA) Negative (Negative) Urine Ketones 4+ A (Negative) Urine Blood Trace-intact A (Negative) Urine Nitrite Negative (Negative) Urine Bilirubin 2+ A (Negative) Urine Urobilinogen 2.0 A (0.2-1.0) Ur Leukocyte Esterase Negative (Negative) Urine RBC 2-5 A (0-2) Urine WBC 2-5 (0-5) Ur Squamous Epith Cells Many A (None-Few) Urine Bacteria Many A (None) Discharge Plan Discharge Clinical Impression: Hyperemesis gravidarum Patient Disposition: Admitted As Inpatient Condition: Stable
[2024-12-10 14:26] LABS: Hematocrit* 46.7 % (33.0-51.0); Hemoglobin* 15.8 gm/dL (12.0-16.0); Immature Granulocytes Abs Auto 0.02 K/uL (0.00-0.30); Immature Granulocytes Pct Auto 0.3 %; Lymphocytes Absolute Auto 2.24 K/uL (0.90-2.90); Mean Corpuscular HGB Conc 34 gm/dL (32-36); Mean Corpuscular Hemoglobin 29 pg (26-34); Mean Corpuscular Volume 84 fL (80-100); RDW Coefficient of Variation % 12.9 % (11.5-15.5); Red Blood Count* 5.54 m/uL (4.00-5.20); White Blood Count* 7.57 K/uL (4.50-11.00)
[2024-12-10 14:29] LABS: Slide Review Reflex No
[2024-12-10 14:30] LABS: Appearance Urine Turbid (Clear)
[2024-12-10] MEDS: LACTATED RINGERS 1000 ML 1,000 ML IV (14:30)
[2024-12-10] MEDS: ONDANSETRON 2 MG/ML inj 4 MG IVP (14:30)
[2024-12-10 14:46] LABS: Albumin* 4.3 g/dL (3.3-5.0); Chloride* 98 mmol/L (96-114); Sodium* 136 mmol/L (135-149)
[2024-12-10 14:47] LABS: Potassium* 3.5 mmol/L (3.6-5.1)
[2024-12-10 14:49] LABS: Alanine Aminotransferase* 36 U/L (4-35); Alkaline Phosphatase* 97 U/L (40-150); Anion Gap 16 mEq/L (7-15); Aspartate Amino Transferase* 40 U/L (12-35); Bilirubin Total* 1.2 mg/dL (0.1-1.5); Blood Urea Nitrogen* 11 mg/dL (5-24); Carbon Dioxide* 22 mmol/L (20-32); Creatinine* 0.7 mg/dL (0.5-1.5); Est. Creatinine Clearance* 108.01; Estimated Glomerular Filt Rate 118 ml/min; Total Protein* 8.5 g/dL (6.0-8.3)
[2024-12-10 14:50] LABS: Calcium* 9.1 mg/dL (8.4-10.6); Glucose* 94 mg/dL (60-115)
[2024-12-10] MEDS: PROCHLORPERAZINE 5 MG/ML VIAL 10 MG IV (16:50)
[2024-12-10 16:55] VITALS: BP 125/78; PULSE 68; RESP 14; TEMP 36.6; O2SAT 99
[2024-12-10] MEDS: 5 % DEXTROSE/0.9% SOD CHLORIDE 1,000 ML 125 ML IV (17:45)
[2024-12-10 18:01] VITALS: BP 125/78; PULSE 68; RESP 14; TEMP 36.6
[2024-12-10 18:05] VITALS: BMI 35.0; BMI 35.1
[2024-12-10 19:00] VITALS: BP 126/70; PULSE 63; RESP 18; TEMP 37.1; O2SAT 99
[2024-12-10] MEDS: POTASSIUM CHLORIDE 10 MEQ/100 ML PIGGYBACK 100 MEQ IVPB ×2 (19:14→20:44)
[2024-12-10] MEDS: LACTATED RINGERS 1000 ML 1,000 ML 500 ML IV (19:16)
--- NOTE | 2024-12-10 19:43 | PM.OBHPAP1 ---
OB - H&P; HPI Antepartum History of Present Illness Time Seen by Provider: 18:45 Date Seen: 12/10/24 Chief complaint: dehydrated, stomach pain, throwing up Narrative: Shayy Sweet is a 34 year old female at 11w2d by LMP c/w 6 wk US who presents with nausea and vomiting. She reports increasing symptoms since she became , and severe symptoms over the past 3 weeks. Endorses 10-15 episodes of vomiting daily over the past 3 weeks. Very limited oral intake; states no food and sips of water only during this time. Believes she has been urinating about once daily. Cannot recall her last BM, believes it was at least one week ago. Endorses mild epigastric discomfort, otherwise no abdominal pain. Recent URI with cough, but currently no symptoms other than mild cough. Denies fever/chills/body aches. Does endorse fatigue. Some nausea and vomiting with her prior pregnancies, but not this severe. She had an unremarkable first trimester ultrasound on 11/12/24. She was prescribed zofran by her PCP, Dr Arleen Mohr without much improvement. She was evaluated in the ED on 12/02, had negative covid/flu/RSV, prescribed metoclopramide. Similarly not effective. History of Present Dating criteria: based on LMP Ultrasounds: normal 1st trimester US Review of Systems Status of ROS: Reports: 10 or more systems reviewed and unremarkable except as noted in History and below Meds Home Medications and Allergies Home Medications ?Medication ?Instructions ?Recorded ?Confirmed ?Type vit no.95-ferrous 1 tab PO DAILY 03/05/23 12/10/24 History fumarate 28 mg-folic acid 800 mcg tablet () levothyroxine 50 mcg tablet 50 mcg PO DAILY 12/02/24 12/10/24 History metoclopramide HCl 10 mg tablet 10 mg PO Q6H PRN nausea and 12/02/24 12/10/24 Rx (Reglan) vomiting #30 tabs ondansetron 4 mg disintegrating mg PO 12/02/24 History tablet Allergies Allergy/AdvReac Type Severity Reaction Status Date / Time No Known Drug Allergies Allergy Verified 12/10/24 11:25 OB - H&P: Exam Physical Exam: Vital signs: Temp Pulse Resp BP Pulse Ox O2 Del Method 97.9 F 68 14 125/78 99 Room Air 12/10/24 18:01 12/10/24 18:01 12/10/24 18:01 12/10/24 18:01 12/10/24 16:55 12/10/24 16:55 Narrative: General appearance: Ill-appearing adult female. Alert, oriented and appropriate. Lying down in hospital bed. HEENT: EOMI, no conjunctival injection or discharge. Mucous membranes dry. Neck: Supple. CV: RRR, no rubs, murmurs or extra heart sounds. Pulm: CTAB, no wheezes, rales or rhonchi. Abdomen: Soft, mildly tender to palpation in the epigastrum. No guarding or rebound. Normoactive bowel sounds. MSK: Moving all extremities. Ext: Warm and well-perfused. No LE edema. Skin: No rashes appreciated over exposed skin. Neuro: Grossly normal strength and sensation. No focal deficits. Psych: Flat affect. OB - Results Labs Labs: Short CBC 12/10/24 Range/Units 14:15 WBC 7.57 (4.50-11.00) K/uL Hgb 15.8 (12.0-16.0) gm/dL Hct 46.7 (33.0-51.0) % Plt Count 264 (140-440) K/uL BMP 12/10/24 14:15 Sodium 136 Potassium 3.5 L Chloride 98 Carbon Dioxide 22 BUN 11 Creatinine 0.7 Glucose 94 Calcium 9.1 Liver Function 12/10/24 Range/Units 14:15 Total Bilirubin 1.2 (0.1-1.5) mg/dL AST 40 H (12-35) U/L ALT 36 H (4-35) U/L Alkaline Phosphatase 97 (40-150) U/L Albumin 4.3 (3.3-5.0) g/dL Urine 12/10/24 Range/Units 13:55 Urine Color Red A (Yellow) Urine Appearance Turbid A (Clear) Urine pH 6.0 (5.0-8.5) Ur Specific [place] >= 1.030 (1.000-1.030) Urine Protein 3+ A (Negative) Urine Glucose (UA) Negative (Negative) OB - A/P Antepartum Assessment and Plan (1) Hyperemesis gravidarum: Problem details: Admission labs with urine showing 4+ ketones, mild hypokalemia, mild transaminitis. 9.5% total body weight loss since her 5 wk OB appt. Status: Acute Assessment and Plan: - S/p 1L LR in the ED. Addition 1L bolus now. Continue D5 NS at 125 mL/hr thereafter. Goal of 100 mL/hr urine output. - Scheduled IV zofran 8mg Q8H, IV compazine 10 mg Q6H for breakthrough nausea - NPO overnight. Consider advancing to clears in AM - IV famotidine 20 mg now - Thiamine daily x 2-3 doses. Currently IV, transition to oral when able - Oral multivitamin when tolerating oral intake - AM CMP and urinalysis - US with cardiac activity in ED. Recommend daily doptone while inpatient. (2) Hypokalemia: Problem details: Potassium 3.5 on admission Status: Acute Assessment and Plan: - Replace potassium IV x 20 mEq once - Recheck K in AM (3) Hypothyroidism: Status: Acute Assessment and Plan: - Continue [employer] levothyroxine Plan - Current obs admission. Consider d/t IVF when urine output adequate and ketonuria resolved. Consider discharge when tolerating oral intake and anti-nausea medications.
[2024-12-10] MEDS: FAMOTIDINE 10 MG/ML inj 20 MG IVP (20:08)
[2024-12-10] MEDS: ONDANSETRON 2 MG/ML inj 8 MG IVP (20:09)
[2024-12-10] MEDS: THIAMINE 250 MG in 0.9 % SODIUM CHLORIDE 100 ml 100 ML 102.5 MG IVPB (22:37)
--- NOTE | 2024-12-10 22:48 | PC.NURSE ---
Shift note: The pt has been alert and oriented x4; denied chest pain and short of breath; Spo2 has been in the 90s in RA. the pt has been reporting mild nausea since admission. The ordered IVF; nausea medication, Potassium and Thiamine were given as ordered. The pt has been NPO; Rest without any acute distress throughout the the shift
[2024-12-10 23:00] VITALS: PULSE 87; RESP 18
[2024-12-11 00:48] VITALS: BP 121/72; PULSE 87; RESP 18; TEMP 36.8; O2SAT 96
[2024-12-11] MEDS: PROCHLORPERAZINE 5 MG/ML VIAL 10 MG IV (00:55)
[2024-12-11] MEDS: SODIUM CHLORIDE 0.9 % (FLUSH) 10 ML SYRINGE IVF ×3 (00:56→20:31)
[2024-12-11] MEDS: ONDANSETRON 2 MG/ML inj 8 MG IVP ×3 (03:21→20:30)
[2024-12-11] MEDS: 5 % DEXTROSE/0.9% SOD CHLORIDE 1,000 ML 125 ML IV ×2 (03:23→11:10)
[2024-12-11 06:52] LABS: Chloride* 107 mmol/L (96-114)
[2024-12-11 06:53] LABS: Albumin* 2.9 g/dL (3.3-5.0); Potassium* 3.0 mmol/L (3.6-5.1); Sodium* 133 mmol/L (135-149)
[2024-12-11 06:55] LABS: Blood Urea Nitrogen* 5 mg/dL (5-24); Creatinine* 0.5 mg/dL (0.5-1.5); Est. Creatinine Clearance* 151.22; Estimated Glomerular Filt Rate 128 ml/min
[2024-12-11 06:56] LABS: Alanine Aminotransferase* 26 U/L (4-35); Alkaline Phosphatase* 71 U/L (40-150); Anion Gap 4 mEq/L (7-15); Aspartate Amino Transferase* 30 U/L (12-35); Bilirubin Total* 0.9 mg/dL (0.1-1.5); Calcium* 7.9 mg/dL (8.4-10.6); Carbon Dioxide* 22 mmol/L (20-32); Glucose* 108 mg/dL (60-115); Total Protein* 5.8 g/dL (6.0-8.3)
--- NOTE | 2024-12-11 07:51 | PC.NURSE ---
shift note: Pt is AOx4. VSS. Pt is up w/ SBA; weak. Urine is concentrated. Pt reported nausea after brushing teeth; PRN med given. Scheduled antiemetic given; see EMAR. Pt. tolerating ice chips approved via [employer].
[2024-12-11 08:16] VITALS: BP 114/71; PULSE 66; RESP 16; TEMP 36.8; O2SAT 96
--- NOTE | 2024-12-11 09:09 | PM.OBPNVD1 ---
OB - PN:Subj Subjective Date Seen: 12/11/24 Narrative: Patient has not vomited since 1PM yesterday. Continues to feel nauseated. Feels like the zofran is helpful. Minimal urination. Had 1 uncollected urine. Has not eaten much. Has not taken her synthroid for 2 weeks due to nausea. OB - PN: Obj Exam Physical Exam: Vital signs: Temp Pulse Resp BP Pulse Ox O2 Del Method 98.3 F 66 16 114/71 96 Room Air 12/11/24 08:16 12/11/24 08:16 12/11/24 08:16 12/11/24 08:16 12/11/24 08:16 12/11/24 08:16 Narrative: Gen: NAD CV: RRR, normal S1,S2, no murmurs Resp: normal rate and effort, clear to auscultation Abd: Soft, nontender Mood: Appropriate, flat OB - PN: Obj Data Labs Labs: Laboratory Results - last 24 hr 12/10/24 12/10/24 12/11/24 13:55 14:15 05:45 WBC 7.57 RBC 5.54 H Hgb 15.8 Hct 46.7 MCV 84 MCH 29 MCHC 34 RDW Coeff of Laura 12.9 Plt Count 264 Neut % (Auto) 61.3 Lymph % (Auto) 29.6 [place] % (Auto) 7.0 Eos % (Auto) 1.3 Baso % (Auto) 0.5 Neut # (Auto) 4.64 Lymph # (Auto) 2.24 [place] # (Auto) 0.50 Eos # (Auto) 0.10 Baso # (Auto) 0.04 Abs Immat Gran (auto) 0.02 Imm/Tot Granulo (auto) 0.3 Sodium 136 133 L Potassium 3.5 L 3.0 L Chloride 98 107 Carbon Dioxide 22 22 Anion Gap 16 H 4 L BUN 11 5 Creatinine 0.7 0.5 Estimated Creat Clear 108.01 151.22 Estimated GFR 118 128 Glucose 94 108 Calcium 9.1 7.9 L Magnesium 2.1 Total Bilirubin 1.2 0.9 AST 40 H 30 ALT 36 H 26 Alkaline Phosphatase 97 71 Total Protein 8.5 H 5.8 L Albumin 4.3 2.9 L TSH 3.790 Urine Color Red A Urine Appearance Turbid A Urine pH 6.0 Ur Specific [place] >= 1.030 Urine Protein 3+ A Urine Glucose (UA) Negative Urine Ketones 4+ A Urine Blood Trace-intact A Urine Nitrite Negative Urine Bilirubin 2+ A Urine Urobilinogen 2.0 A Ur Leukocyte Esterase Negative Urine RBC 2-5 A Urine WBC 2-5 Ur Squamous Epith Cells Many A Urine Bacteria Many A OB - PN: A/P Delivery Assessment and Plan (1) Hyperemesis gravidarum: Problem details: Admission labs with urine showing 4+ ketones, mild hypokalemia, mild transaminitis. 9.5% total body weight loss since her 5 wk OB appt. Status: Acute Assessment and Plan: - Give an additional 500cc bolus now, continue D5 NS at 125 mL/hr thereafter. Goal of 100 mL/hr urine output. Strict I/Os - Scheduled IV zofran 8mg Q8H, IV compazine 10 mg Q6H for breakthrough nausea - Encourage oral intake, clear diet and advance as tolerated. - IV famotidine 20 mg BID, transition to PO when able. - Thiamine daily x 2-3 doses. Currently IV, transition to oral when able - Oral multivitamin when tolerating oral intake - IV Folic acid 1mg daily, transition to oral when able. - CMP BID, repat urine ketones today - US with cardiac activity in ED. Recommend daily doptone / US while inpatient. - EKG for baseline QTc given antiemetic use and malnutrition. - Consider bowel regimen (2) Hypokalemia: Problem details: Potassium 3.5 on admission, down to 3.0, gave an additional 20mEq IV today. Status: Acute (3) Hypothyroidism: Problem details: TSH on admission 3.79, restart synthroid 50mcg daily, has not taken over last 2 weeks. Status: Acute
[2024-12-11] MEDS: LEVOTHYROXINE 50 MCG TABLET PO (09:56)
[2024-12-11] MEDS: FAMOTIDINE 10 MG/ML inj 20 MG IVP ×2 (09:57→20:32)
[2024-12-11] MEDS: FOLIC ACID 1 MG in 0.9 % SODIUM CHLORIDE 50 ml 50 ML 100.4 MG IVPB (10:21)
[2024-12-11 10:36] LABS: Appearance Urine Clear (Clear)
[2024-12-11 10:59] VITALS: BP 126/85; PULSE 85; RESP 16; TEMP 36.6; O2SAT 98
[2024-12-11] MEDS: POTASSIUM CHLORIDE 10 MEQ/100 ML PIGGYBACK 100 MEQ IVPB ×3 (11:06→20:31)
[2024-12-11] MEDS: 0.9 % SODIUM CHLORIDE 500 ML 500 ML IV (11:06)
--- NOTE | 2024-12-11 13:24 | P.NUTASMT_ITS ---
Hospital Nutrition Assessment Patient Data Patient Gender: Female Patient Age: 34 Height: 167.64 cm Weight: 100.83 kg Body Mass Index: 35.9 Usual Body Weight: 106.594 kg Weight Calculations [place] Body Weight (lbs): 130.00 [place] Body Weight (kg): 58.97 Percent of [place] Body Weight: 171 Adjusted Body Weight (lbs): 153.07 Adjusted Body Weight (kg): 69.43 Percent of Usual Body Weight: 95 Basal Energy Expenditure (BEE): 1779.84 Basal Energy Expenditure (BEE) Adjusted Weight: 1479.56 Activity/Stress Factors Injury Factor/Activity Factor Value: 1.2 Total Energy Requirements Kcal requirements (current wt): 2135.808 Kcal requirements (adj wt): 1775.472 Protein Need (adj wt): 1.0 Total Protein (adj wt): 69.430 Fluid Need (adj wt): 30 Total Fluid (adj wt): 2082.90 Nutrition Assessment Diet Order: Regular (Currently diet advance as tolerated - ordered Regular diet now.) Food Modified for Dysphagia: 7-Regular Liquid Modified for Dysphagia: 0-Thin Allergies: NKFA Appetite Prior to Admission: Poor (dx with hyperemesis gravidarum) Appetite and Intake: Unable to keep liquids and solids down x3 weeks before admit Hx Appetite Changes: Yes (Very low due to hyperemesis gravidaram) Hx Weight Loss: Yes (UBW ~235 lbs, loss of about 12 lbs within 30 days is sig. wt loss @ 5.1%) Hx Weight Gain: No Nausea: Yes (present since , severe x3 weeks) Vomiting: Yes (present since , severe x3 weeks) Duration of Nausea/Vomiting: x3 weeks Hx Constipation: No Chewing Difficulty: No Swallowing Difficulty: No Diagnosis/Symptom or Procedure: Hyperemesis Gravidarum Clinical History: Medical history includes but not limited to 2 pregnancies with nausea and vomiting but without severe presentation. Pt reports increasing nausea and vomiting since she became , with severe symptoms over the past 3 weeks. Has about 10-15 episodes of vomiting daily over the past 3 weeks. Very limited oral intake during this time with little to no food and only sips of water. Current Living Situation: Lives at home. Medications Medications: Reviewed. Tried zofran to help with nausea, however this was not helpful. Lab Results Lab Results: reviewed. Potassium low. Education Topic Comment: Dietary Topic: Morning Sickness Nutrition Therapy & Healthy Nutrition Therapy and Tips Discussed tips on how to reduce nausea through food choices. I recommended patient eat multiple times per day, ideally every 2-3 hours. Reviewed foods that may help relieve nausea such as sour, spicy, and benson-containing foods. Recommended she keep food by her bed so she can eat right away when she wakes up for the day. Also reviewed foods not recommended such as alcohol, raw foods, foods high in mercury, and any food unpasteurized. Discussed fluid goal of 12 cups daily. I recommended she not drink water on an empty stomach. Discussed drinking rehydration oral drinks such as Gatorade or Pedialyte to help replace electrolytes at this time. Response to Teaching: Verbalize Understanding Teaching Methods: Verbal and Handout Teaching Recipient: Patient and Family Assessment/Plan PES Statement: Unintentional significant weight loss related to hyperemesis in as evidenced by loss of 5.1% body weight in 30 days. Nutritional Assessment Summary: RDN visited with patient and provided diet education for morning sickness. Patient reports she was able to keep down yogurt and stateless toast this morning. She is going to gradually increase her intake as tolerated. No nutrition interventions at this time as patient is slowly increasing her intake. Patient can try nutrition supplements if she is interested. She declined trying supplements at this time. Weight loss within 30 days is significant at 5.1% due to hyperemesis gravidarum. Her weight has increased slightly since admit due to IV fluids. Discharge Plan-Living Situation: Home at d/c. Goals: Tolerance of Regular diet without vomiting. No s/s dehydration. Plan/Recommendation: Diet order per MD order and tolerance. RDN will continue to monitor and follow-up prn. Malnutrition Assessment Current Energy Intake: Less Than 75% Estimated Timeframe Of Energy Intake: Greater Than Or Equal To 7 Days (x3 weeks) Weight Changes: >5% In 1 Month Recommended Malnutrition Diagnosis: Moderate Protein-Calorie Malnutrition In The Context: Acute Injury/Illness (hyperemesis gravidarum) Based On: Weight Loss and Inadequate Energy Intakes
[2024-12-11 13:25] VITALS: BMI 35.9
[2024-12-11 15:00] VITALS: PULSE 85; RESP 16
[2024-12-11 18:43] LABS: Chloride* 107 mmol/L (96-114)
[2024-12-11 18:44] LABS: Albumin* 2.8 g/dL (3.3-5.0); Potassium* 3.2 mmol/L (3.6-5.1); Sodium* 134 mmol/L (135-149)
[2024-12-11 18:46] LABS: Alanine Aminotransferase* 30 U/L (4-35); Anion Gap 7 mEq/L (7-15); Aspartate Amino Transferase* 32 U/L (12-35); Blood Urea Nitrogen* 5 mg/dL (5-24); Carbon Dioxide* 20 mmol/L (20-32); Creatinine* 0.5 mg/dL (0.5-1.5); Est. Creatinine Clearance* 151.22; Estimated Glomerular Filt Rate 128 ml/min
[2024-12-11 18:47] LABS: Alkaline Phosphatase* 73 U/L (40-150); Bilirubin Total* 0.4 mg/dL (0.1-1.5); Calcium* 7.3 mg/dL (8.4-10.6); Total Protein* 5.5 g/dL (6.0-8.3)
[2024-12-11 18:57] LABS: Glucose* 423 mg/dL (60-115)
--- NOTE | 2024-12-11 19:03 | PC.NURSE ---
Pt is doing really well today. VSS. Denies pain. No nausea or vomiting this entire shift. Pt is tolerating regular diet for all meals today. Ambulating in the halls independently. Pt is resting well at this time.
[2024-12-11] MEDS: 0.9 % SODIUM CH + KCL 20 mEq/L 1,000 ML 125 ML IV (20:29)
[2024-12-11 20:49] VITALS: BP 108/85; PULSE 82; RESP 16; TEMP 36.6; O2SAT 98
[2024-12-11] MEDS: THIAMINE 250 MG in 0.9 % SODIUM CHLORIDE 100 ml 100 ML 102.5 MG IVPB (21:22)
--- NOTE | 2024-12-11 21:28 | PC.NURSE ---
MD Brambila entered order to give 20 mEq of IV Potassium. Pt unable to tolerate IV Potassium due to c/o burning after starting with NS with K+. Dr. Brambila was contacted and updated- switched order to po as pt is tolerating orals with no vomiting per pt's primary RN.
[2024-12-11] MEDS: POTASSIUM CHLORIDE 10 MEQ CAPSULE ER 20 MEQ PO (21:47)
[2024-12-12 01:27] VITALS: BP 119/79; PULSE 77; RESP 18; O2SAT 99
[2024-12-12] MEDS: ACETAMINOPHEN 500 MG TABLET 1000 MG PO (01:58)
[2024-12-12 03:05] VITALS: BP 106/62; PULSE 63; RESP 16; TEMP 36.8; O2SAT 95
[2024-12-12] MEDS: ONDANSETRON 2 MG/ML inj 8 MG IVP (04:06)
[2024-12-12] MEDS: PROCHLORPERAZINE 5 MG/ML VIAL 10 MG IV (05:28)
[2024-12-12] MEDS: 0.9 % SODIUM CH + KCL 20 mEq/L 1,000 ML 125 ML IV (05:34)
[2024-12-12 06:20] LABS: Albumin* 3.0 g/dL (3.3-5.0); Chloride* 104 mmol/L (96-114); Potassium* 3.7 mmol/L (3.6-5.1); Sodium* 132 mmol/L (135-149)
--- NOTE | 2024-12-12 06:21 | PC.NURSE ---
End of shift [id number]: Pt AxOx3, cooperative, and pleasant with cares. Indep in room, walking hallways. Pt had 1 emesis episode. Scheduled and PRN medications given for nausea management. Pt denies pain/dizziness/CP/SOB. Pt reported headache during the night, MD Brambila notified regardng PRN Tylenol order. Relief reported. Pt tolerating regular diet and fluids well. Pt in bed with call light in reach.
[2024-12-12 06:23] LABS: Alanine Aminotransferase* 26 U/L (4-35); Alkaline Phosphatase* 73 U/L (40-150); Anion Gap 7 mEq/L (7-15); Aspartate Amino Transferase* 25 U/L (12-35); Bilirubin Total* 0.4 mg/dL (0.1-1.5); Blood Urea Nitrogen* 3 mg/dL (5-24); Calcium* 8.3 mg/dL (8.4-10.6); Carbon Dioxide* 21 mmol/L (20-32); Creatinine* 0.5 mg/dL (0.5-1.5); Est. Creatinine Clearance* 151.22; Estimated Glomerular Filt Rate 128 ml/min; Glucose* 91 mg/dL (60-115); Total Protein* 5.8 g/dL (6.0-8.3)
--- NOTE | 2024-12-12 06:47 | PM.OBPNVD1 ---
OB - PN:Subj Subjective Date Seen: 12/12/24 Interval history: Overnight patient endorsed headache, treated with tylenol. She had one episode of emesis overnight. She was able to advance diet yesterday and has had no vomiting episode. She remained on IVF and IV medication. Plan to transition to orals today. Urine output 101ml/hour. Weight gain 7kg. She is nervous about going home and what that will look like. How to manage medications and such. OB - PN: Obj Exam Physical Exam: Vital signs: Temp Pulse Resp BP Pulse Ox O2 Del Method 98.3 F 63 16 106/62 95 Room Air 12/12/24 03:05 12/12/24 03:05 12/12/24 03:05 12/12/24 03:05 12/12/24 03:05 12/12/24 03:05 Narrative: Gen: NAD CV: RRR, normal S1,S2, no murmurs Resp: normal rate and effort, clear to auscultation Abd: Soft, nontender. Ext: Warm, dry, 2+ pedal pulses, no edema b/l. Calves non-tender to palpation. Mood: Appropriate POCUS: movement and cardiac activity noted. OB - PN: Obj Data Labs Labs: Laboratory Results - last 24 hr 12/11/24 12/11/24 12/11/24 05:45 18:13 Unknown Sodium 133 L 134 L Potassium 3.0 L 3.2 L Chloride 107 107 Carbon Dioxide 22 20 Anion Gap 4 L 7 BUN 5 5 Creatinine 0.5 0.5 Estimated Creat Clear 151.22 151.22 Estimated GFR 128 128 Glucose 108 423 H* Calcium 7.9 L 7.3 L Total Bilirubin 0.9 0.4 AST 30 32 ALT 26 30 Alkaline Phosphatase 71 73 Total Protein 5.8 L 5.5 L Albumin 2.9 L 2.8 L TSH 3.790 Urine Color Yellow Urine Appearance Clear Urine pH 7.0 Ur Specific [place] 1.015 Urine Protein Negative Urine Glucose (UA) Negative Urine Ketones 2+ A Urine Blood Negative Urine Nitrite Negative Urine Bilirubin Negative Urine Urobilinogen 2.0 A Ur Leukocyte Esterase Trace A 12/12/24 05:12 Sodium 132 L Potassium 3.7 Chloride 104 Carbon Dioxide 21 Anion Gap 7 BUN 3 L Creatinine 0.5 Estimated Creat Clear 151.22 Estimated GFR 128 Glucose 91 Calcium 8.3 L Total Bilirubin 0.4 AST 25 ALT 26 Alkaline Phosphatase 73 Total Protein 5.8 L Albumin 3.0 L TSH Urine Color Urine Appearance Urine pH Ur Specific [place] Urine Protein Urine Glucose (UA) Urine Ketones Urine Blood Urine Nitrite Urine Bilirubin Urine Urobilinogen Ur Leukocyte Esterase OB - PN: A/P Delivery Assessment and Plan (1) Hyperemesis gravidarum: Problem details: Admission labs with urine showing 4+ ketones, mild hypokalemia, mild transaminitis. 9.5% total body weight loss since her 5 wk OB appt. Improvement with IV hydration, scheduled IV zofran. Eating and drinking well. Transition to PO only today. Status: Acute Assessment and Plan: - Stop IVF today. PO challenge. Goal of 100 mL/hr urine output. Strict I/Os - Scheduled zofran 4mg Q6H, IV compazine 10 mg Q6H for breakthrough nausea, if needing PRN then consider adding another oral medication. - Encourage oral intake, regular diet - PO Famotidine 20 mg BID for GI protection - Stop thiamine daily x 2-3 doses. - Oral multivitamin at home - PO folic acid 1mg daily - PO potassium 20mEq BID, likely to transition to once daily or stop on discharge. - BMP at 1200, repeat urine ketones today - Recommend daily doptone / US while inpatient. - EKG for baseline QTc given antiemetic use and malnutrition. - Consider bowel regimen - If tolerating PO (meds/diet) and potassium remains appropriate, likely ok for discharge this evening with follow-up on Mon/Tues next week. If any challenges may require an additional night inpatient. (2) Hypokalemia: Problem details: Potassium 3.5 on admission, low of 3.0. Improvement today to 3.7 Status: Acute (3) Hypothyroidism: Problem details: TSH on admission 3.79, restart synthroid 50mcg daily, has not taken over last 2 weeks. Status: Acute
[2024-12-12 07:40] VITALS: BP 109/70; PULSE 66; RESP 18; TEMP 36.8; O2SAT 96
[2024-12-12 07:45] LABS: Appearance Urine Clear (Clear)
[2024-12-12] MEDS: POTASSIUM CHLORIDE 10 MEQ CAPSULE ER 20 MEQ PO (08:39)
[2024-12-12] MEDS: FOLIC ACID 1 MG TABLET PO (08:40)
[2024-12-12] MEDS: LEVOTHYROXINE 50 MCG TABLET PO (08:40)
[2024-12-12] MEDS: FAMOTIDINE 20 MG TABLET PO (08:40)
[2024-12-12] MEDS: SODIUM CHLORIDE 0.9 % (FLUSH) 10 ML SYRINGE IVF (08:40)
[2024-12-12] MEDS: ONDANSETRON ODT 4 MG TAB PO (10:28)
[2024-12-12 11:30] VITALS: BP 130/82; PULSE 80; RESP 18; TEMP 36.6; O2SAT 97
[2024-12-12 12:18] LABS: Chloride* 102 mmol/L (96-114); Potassium* 3.6 mmol/L (3.6-5.1); Sodium* 131 mmol/L (135-149)
[2024-12-12 12:21] LABS: Anion Gap 8 mEq/L (7-15); Blood Urea Nitrogen* 3 mg/dL (5-24); Carbon Dioxide* 21 mmol/L (20-32); Creatinine* 0.5 mg/dL (0.5-1.5); Est. Creatinine Clearance* 151.22; Estimated Glomerular Filt Rate 128 ml/min
[2024-12-12 12:22] LABS: Calcium* 8.7 mg/dL (8.4-10.6); Glucose* 119 mg/dL (60-115)
[2024-12-12 13:30] VITALS: BP 116/81
--- NOTE | 2024-12-12 14:05 | W.PM.OB.MED ---
DS: Providers Provider Date Seen: 12/12/24 Date of admission: 12/10/24 17:52 Primary care physician: Apple Mohr MD Admitting Clinician: Mary Mendoza MD Attending Physician on discharge: Mary Mendoza MD DS: Diagnosis Discharge Diagnosis (1) : Status: Acute (2) Hyperemesis gravidarum: Status: Acute Problem details: Admission labs with urine showing 4+ ketones, mild hypokalemia, mild transaminitis. 9.5% total body weight loss since her 5 wk OB appt. Improvement with IV hydration (6L), scheduled IV zofran. Had trace ketones at discharge. Eating and drinking well. Scheduled zofran helpful. (3) Hypokalemia: Status: Acute Problem details: Potassium 3.5 on admission, nayana 3.0. Hypokalemia resolved with supplementation on day of discharge. D/c with 20mEq K daily, recommend BMP at post-hospital visit. (4) Hypothyroidism: Status: Acute Problem details: TSH on admission 3.79, restart synthroid 50mcg daily, has not taken over last 2 weeks. Discharge Plan Discharge Disposition: Home, Self-Care Date of Admission: 12/10/24 17:52 Attending Provider on Discharge: Molly Brambila Primary Care Provider: Apple Mohr Condition: Stable Anticipated Discharge Date/Time: 12/12/24 14:22 Discharge Medications: New potassium chloride 10 mEq Capsule, Extended Release 20 meq PO DAILY 10 Days Qty: 10 0RF famotidine 20 mg Tablet 20 mg PO BID 30 Days Qty: 60 0RF folic acid 1 mg Tablet 1 mg PO DAILY 30 Days Qty: 30 0RF ondansetron 4 mg Tablet,Disintegrating 4 mg PO Q6H 30 Days Qty: 120 0RF Continued PNV no.95-ferrous fumarate-FA [] 28 mg iron- 800 mcg tablet 1 tab PO DAILY levothyroxine 50 mcg tablet 50 mcg PO DAILY metoclopramide HCl [Reglan] 10 mg tablet 10 mg PO Q6H PRN (Reason: nausea and vomiting) Qty: 30 0RF Discharge Orders: Discharge Order (Routine); Ordered 12/12/24 Ordered By: Molly Brambila Patient Education: Famotidine (By mouth), Potassium Chloride (By mouth), Folic Acid (By mouth), Ondansetron (By mouth), Hyperemesis Gravidarum (DC), Hypothyroidism in (DC) Additional Instructions: I have scheduled you for follow-up in clinic with me on Thursday 12/14 at 2:40PM. Someone from my office will call in the morning to confirm that works for you. It is important to take all meds as prescribed. Goal is to stay on top of nausea and hydration. Nausea Medication Plan: - Take scheduled zofran every 6 hours. - Take bhtz-lln-prsogiz doxlyamine 10mg and pyridoxine 10mg at bedtime. - Take Reglan every 6 hours as needed for breakthrough nausea. - Elaine products can be helpful. Other medications to continue to take: - Continue vitamin daily - Start daily folic acid, important for neural tube growth. - Start famotidine twice daily. This is to assist with stomach protection given the vomiting. It is an antacid. - Start potassium 20mEq daily. This is likely short term until your follow-up. Your potassium was low in the hospital likely related to dehydration and malnutrition. We can discuss at your next appointment if you will need additional IV hydration. This can be done in the clinic and some patient schedule 1-2 times weekly if appropriate. Activity Level: Activity as Tolerated Follow Up Appointments: Apple Mohr MD [Primary Care Provider, [facility]] Forms: [facility] Info Instructions Hospital Course Course Hospital Course: Patient is a at 11w GA admitted with dehydration/weight loss related to hyperemesis gravidarum. Admission labs with urine showing 4+ ketones, mild hypokalemia, mild transaminitis. 9.5% total body weight loss since her 5 wk OB appt. She had dramatic improvement with IV hydration (6L), scheduled IV zofran. Had trace ketones at discharge. Eating and drinking well. Scheduled zofran helpful. - Follow-up on 12/14 in clinic for repeat BMP and poct UA for ketones. May need IVF. - Continue scheduled zofran 4mg Q6H and start bedtime Unisom. PRN Reglan at home for breakthrough nausea - Encourage oral intake, regular diet - PO Famotidine 20 mg BID for GI protection - Stop thiamine daily. - PO multivitamin at home - PO folic acid 1mg daily - PO potassium 20mEq daily, repeat BMP at post-hospital and likely to stop.. - QTc 438 on 12/11. - Monitor bowel movements given scheduled antiemetics. Labs Labs: Laboratory Tests 12/12/24 12/12/24 12/12/24 Range/Units 12:00 07:40 05:12 WBC (4.50-11.00) K/uL RBC (4.00-5.20) m/uL Hgb (12.0-16.0) gm/dL Hct (33.0-51.0) % MCV (80-100) fL MCH (26-34) pg MCHC (32-36) gm/dL RDW Coeff of Laura (11.5-15.5) % Plt Count (140-440) K/uL Neut % (Auto) (42.0-72.0) % Lymph % (Auto) (20-44) % [place] % (Auto) (0.0-11.0) % Eos % (Auto) (0.0-7.0) % Baso % (Auto) (0.0-3.0) % Neut # (Auto) (1.7-7.0) K/uL Lymph # (Auto) (0.90-2.90) K/uL [place] # (Auto) (0.00-0.90) K/UL Eos # (Auto) (0.00-0.50) K/uL Baso # (Auto) (0.00-0.30) K/uL Abs Immat Gran (auto) (0.00-0.30) K/uL Imm/Tot Granulo (auto) % Sodium 131 L 132 L (135-149) mmol/L Potassium 3.6 3.7 (3.6-5.1) mmol/L Chloride 102 104 (96-114) mmol/L Carbon Dioxide 21 21 (20-32) mmol/L Anion Gap 8 7 (7-15) mEq/L BUN 3 L 3 L (5-24) mg/dL Creatinine 0.5 0.5 (0.5-1.5) mg/dL Estimated Creat Clear 151.22 151.22 Estimated GFR 128 128 ml/min Glucose 119 H 91 (60-115) mg/dL Calcium 8.7 8.3 L (8.4-10.6) mg/dL Magnesium (1.5-2.6) mg/dL Total Bilirubin 0.4 (0.1-1.5) mg/dL AST 25 (12-35) U/L ALT 26 (4-35) U/L Alkaline Phosphatase 73 (40-150) U/L Total Protein 5.8 L (6.0-8.3) g/dL Albumin 3.0 L (3.3-5.0) g/dL TSH (0.270-4.20) uIU/mL Urine Color Yellow (Yellow) Urine Appearance Clear (Clear) Urine pH 7.0 (5.0-8.5) Ur Specific [place] 1.020 (1.000-1.030) Urine Protein Negative (Negative) Urine Glucose (UA) Negative (Negative) Urine Ketones Trace A (Negative) Urine Blood Negative (Negative) Urine Nitrite Negative (Negative) Urine Bilirubin Negative (Negative) Urine Urobilinogen 0.2 (0.2-1.0) Ur Leukocyte Esterase Negative (Negative) Urine RBC (0-2) Urine WBC (0-5) Ur Squamous Epith Cells (None-Few) Urine Bacteria (None) 12/11/24 12/11/24 12/11/24 Range/Units Unknown 18:13 05:45 WBC (4.50-11.00) K/uL RBC (4.00-5.20) m/uL Hgb (12.0-16.0) gm/dL Hct (33.0-51.0) % MCV (80-100) fL MCH (26-34) pg MCHC (32-36) gm/dL RDW Coeff of Laura (11.5-15.5) % Plt Count (140-440) K/uL Neut % (Auto) (42.0-72.0) % Lymph % (Auto) (20-44) % [place] % (Auto) (0.0-11.0) % Eos % (Auto) (0.0-7.0) % Baso % (Auto) (0.0-3.0) % Neut # (Auto) (1.7-7.0) K/uL Lymph # (Auto) (0.90-2.90) K/uL [place] # (Auto) (0.00-0.90) K/UL Eos # (Auto) (0.00-0.50) K/uL Baso # (Auto) (0.00-0.30) K/uL Abs Immat Gran (auto) (0.00-0.30) K/uL Imm/Tot Granulo (auto) % Sodium 134 L 133 L (135-149) mmol/L Potassium 3.2 L 3.0 L (3.6-5.1) mmol/L Chloride 107 107 (96-114) mmol/L Carbon Dioxide 20 22 (20-32) mmol/L Anion Gap 7 4 L (7-15) mEq/L BUN 5 5 (5-24) mg/dL Creatinine 0.5 0.5 (0.5-1.5) mg/dL Estimated Creat Clear 151.22 151.22 Estimated GFR 128 128 ml/min Glucose 423 H* 108 (60-115) mg/dL Calcium 7.3 L 7.9 L (8.4-10.6) mg/dL Magnesium (1.5-2.6) mg/dL Total Bilirubin 0.4 0.9 (0.1-1.5) mg/dL AST 32 30 (12-35) U/L ALT 30 26 (4-35) U/L Alkaline Phosphatase 73 71 (40-150) U/L Total Protein 5.5 L 5.8 L (6.0-8.3) g/dL Albumin 2.8 L 2.9 L (3.3-5.0) g/dL TSH 3.790 (0.270-4.20) uIU/mL Urine Color Yellow (Yellow) Urine Appearance Clear (Clear) Urine pH 7.0 (5.0-8.5) Ur Specific [place] 1.015 (1.000-1.030) Urine Protein Negative (Negative) Urine Glucose (UA) Negative (Negative) Urine Ketones 2+ A (Negative) Urine Blood Negative (Negative) Urine Nitrite Negative (Negative) Urine Bilirubin Negative (Negative) Urine Urobilinogen 2.0 A (0.2-1.0) Ur Leukocyte Esterase Trace A (Negative) Urine RBC (0-2) Urine WBC (0-5) Ur Squamous Epith Cells (None-Few) Urine Bacteria (None) 12/10/24 12/10/24 Range/Units 14:15 13:55 WBC 7.57 (4.50-11.00) K/uL RBC 5.54 H (4.00-5.20) m/uL Hgb 15.8 (12.0-16.0) gm/dL Hct 46.7 (33.0-51.0) % MCV 84 (80-100) fL MCH 29 (26-34) pg MCHC 34 (32-36) gm/dL RDW Coeff of Laura 12.9 (11.5-15.5) % Plt Count 264 (140-440) K/uL Neut % (Auto) 61.3 (42.0-72.0) % Lymph % (Auto) 29.6 (20-44) % [place] % (Auto) 7.0 (0.0-11.0) % Eos % (Auto) 1.3 (0.0-7.0) % Baso % (Auto) 0.5 (0.0-3.0) % Neut # (Auto) 4.64 (1.7-7.0) K/uL Lymph # (Auto) 2.24 (0.90-2.90) K/uL [place] # (Auto) 0.50 (0.00-0.90) K/UL Eos # (Auto) 0.10 (0.00-0.50) K/uL Baso # (Auto) 0.04 (0.00-0.30) K/uL Abs Immat Gran (auto) 0.02 (0.00-0.30) K/uL Imm/Tot Granulo (auto) 0.3 % Sodium 136 (135-149) mmol/L Potassium 3.5 L (3.6-5.1) mmol/L Chloride 98 (96-114) mmol/L Carbon Dioxide 22 (20-32) mmol/L Anion Gap 16 H (7-15) mEq/L BUN 11 (5-24) mg/dL Creatinine 0.7 (0.5-1.5) mg/dL Estimated Creat Clear 108.01 Estimated GFR 118 ml/min Glucose 94 (60-115) mg/dL Calcium 9.1 (8.4-10.6) mg/dL Magnesium 2.1 (1.5-2.6) mg/dL Total Bilirubin 1.2 (0.1-1.5) mg/dL AST 40 H (12-35) U/L ALT 36 H (4-35) U/L Alkaline Phosphatase 97 (40-150) U/L Total Protein 8.5 H (6.0-8.3) g/dL Albumin 4.3 (3.3-5.0) g/dL TSH (0.270-4.20) uIU/mL Urine Color Red A (Yellow) Urine Appearance Turbid A (Clear) Urine pH 6.0 (5.0-8.5) Ur Specific [place] >= 1.030 (1.000-1.030) Urine Protein 3+ A (Negative) Urine Glucose (UA) Negative (Negative) Urine Ketones 4+ A (Negative) Urine Blood Trace-intact A (Negative) Urine Nitrite Negative (Negative) Urine Bilirubin 2+ A (Negative) Urine Urobilinogen 2.0 A (0.2-1.0) Ur Leukocyte Esterase Negative (Negative) Urine RBC 2-5 A (0-2) Urine WBC 2-5 (0-5) Ur Squamous Epith Cells Many A (None-Few) Urine Bacteria Many A (None) OB Problem List Additional Plan (1) : Status: Acute (2) Hyperemesis gravidarum: Problem details: Admission labs with urine showing 4+ ketones, mild hypokalemia, mild transaminitis. 9.5% total body weight loss since her 5 wk OB appt. Improvement with IV hydration (6L), scheduled IV zofran. Had trace ketones at discharge. Eating and drinking well. Scheduled zofran helpful. Status: Acute (3) Hypokalemia: Problem details: Potassium 3.5 on admission, nayana 3.0. Hypokalemia resolved with supplementation on day of discharge. D/c with 20mEq K daily, recommend BMP at post-hospital visit. Status: Acute (4) Hypothyroidism: Problem details: TSH on admission 3.79, restart synthroid 50mcg daily, has not taken over last 2 weeks. Status: Acute DS: Summary Vital Signs Vital Signs: Vital Signs Temp Pulse Resp BP Pulse Ox O2 Del Method 12/12/24 13:30 116/81 12/12/24 11:30 97.9 F 80 18 130/82 97 Room Air 12/12/24 07:40 98.3 F 66 18 109/70 96 Room Air 12/12/24 03:05 98.3 F 63 16 106/62 95 Room Air 12/12/24 01:27 77 18 119/79 99 Room Air 12/11/24 20:49 97.8 F 82 16 108/85 98 Room Air 12/11/24 15:00 85 16 Discharge Examination Physical Examination findings: Gen: NAD CV: RRR, normal S1,S2, no murmurs Resp: normal rate and effort, clear to auscultation Abd: Soft, nontender. Ext: Warm, dry, 2+ pedal pulses, no edema b/l. Calves non-tender to palpation. Mood: Appropriate POCUS: movement and cardiac activity noted.
--- NOTE | 2024-12-12 14:05 | PC.NURSE ---
Pt is doing well today. VSS. Denies pain. Denies nausea, no emesis this shift. Pt has no required any PRN compazine. She has had adequate urine output. Pt tolerated PO medications this morning, tolerated meals as well. Pt showered today and is walking the halls independently.
[2024-12-12 15:00] VITALS: BP 127/74; PULSE 76; RESP 18; TEMP 36.6; O2SAT 98
--- NOTE | 2024-12-12 17:43 | PC.NURSE ---
Almond Blancher Hand accessed chart d/t patient call after discharging with questions on medications. Almond Blancher Hand messaged OB provider Dr. Molly Brambila to clarify. Medication clarified and patient updated with plan.
== END 2024-12-12 15:40 | disposition home or self-care (01) ==
LOC: ED 16:45 → MEDSURG 17:58
PROVIDERS: Student in an Organized Health Care Education/Training Program; Admitting Provider Family Medicine; Emergency Provider Student in an Organized Health Care Education/Training Program; PCP Family Medicine; Visit Provider Family Medicine
DX: O21.0 Mild hyperemesis gravidarum (principal); E87.6 Hypokalemia; E03.9 Hypothyroidism, unspecified; Z3A.11 11 weeks gestation of pregnancy
CPT/HCPCS: 36415; 80048; 80053; 81001; 81003; 83735; 84443; 85025; 87086; 93005; 96365; 96366; 96375; 99284; 99285; A9270; G0378; J0780; J1308; J2405; J3411; J3480; J7030; J7042; J7120